=== PATIENT | male | born 1945 | race Caucasian/White ===

== ENCOUNTER → 2020-04-09 06:56 | Day surgery (SDC) | payer MEDICARE, SELFPAY ==
[2020-04-09 07:20] VITALS: BP 131/74; PULSE 76; RESP 16; TEMP 36.6; O2SAT 98
--- NOTE | 2020-04-09 12:29 | SUR.PREOP ---
0720 Pt to OPS for warm milk and molasses enema followed with soap suds enemas until clear. Pt tolerated enemas well. Small amount of stool returned. Rectal vault checked with no stool or impaction noted. Enemas completed until clear.
== END ==
PROVIDERS: PCP Family Medicine; Visit Provider Family Medicine
DX: K59.00 Constipation, unspecified (principal)
CPT/HCPCS: 45915

== ENCOUNTER 2020-04-10 15:23 | Emergency (ER) | payer MEDICARE, SELFPAY ==
--- NOTE | 2020-04-10 15:37 | XRR_ITS ---
PROCEDURE INFORMATION: Exam: XR Abdomen, 1 View Exam date and time: 04/10/2020 4:16 PM Age: 74 years old Clinical indication: Constipation TECHNIQUE: Imaging protocol: XR of the abdomen. Views: Frontal supine view of the abdomen. 1 View. COMPARISON: CR XR abdomen min 2V [id number] 04/07/2020 5:42 PM FINDINGS: Gastrointestinal tract: Normal. No bowel dilation. There is significant colonic fecal stasis involving the ascending proximal transverse descending and sigmoid colon. The examination is negative for evidence of bowel obstruction. The bowel gas pattern is otherwise unremarkable. Bones/joints: Unremarkable. Other findings: These findings have increased since prior examination. XR/XR KUB [id number] IMPRESSION: 1. No acute GI abnormality. 2. Significant colonic fecal stasis 3. Otherwise negative examination
[2020-04-10 15:51] VITALS: BP 103/66; PULSE 82; RESP 14; TEMP 36.6; O2SAT 97; BMI 21.2
[2020-04-10 16:08] VITALS: BP 139/85; PULSE 83; RESP 18; O2SAT 96
--- NOTE | 2020-04-10 16:09 | W.ED.GENADLT ---
HPI - General Adult General: Chief complaint: General Medical Stated complaint: constipation/nausea Time Seen by Provider: 04/10/20 16:04 Source: patient Mode of arrival: ambulatory Limitations: no limitations History of Present Illness: HPI narrative: 74-year-old male who has a long history of constipation. Patient states that yesterday he went to the GI lab and had an emesis. Patient did take mag citrate today but is unable to have a bowel movement. He denies any pain he states he just concerned as he has not had a bowel movement. Denies any vomiting or diarrhea. Denies any worsening improving factors. Associated symptoms: Deny chest pain, dyspnea, headache(s) or rash Review of Systems Const: Denies: fever(s), chills, body aches or change in appetite Eyes: Denies: blurry vision or eye discomfort ENMT: Denies: throat pain or dental pain Card: Denies: chest pain Resp: Denies: dyspnea GI: Reports: constipation : Denies: dysuria Musc: Denies: neck pain or back pain Skin/Breast: Denies: rash Neuro: Denies: headache(s) Psych: Denies: depression Shaheen/Lymph: Denies: easy bruising All/Imm: Denies: urticaria Physical Exam Const: COMMON NORMALS: no acute distress, patient oriented x3 and healthy appearing HENMT: COMMON NORMALS: normocephalic and atraumatic HEAD & SCALP: normocephalic and atraumatic Eye: COMMON NORMALS: Equal, round and reactive pupils present and EOMs intact bilaterally PUPIL: Yes Equal, round and reactive pupils present Neck/C-Spine: COMMON NORMALS: full ROM and supple Chest: COMMONS NORMALS: normal inspection of the chest and normal palpation of entire chest wall Resp: COMMON NORMALS: normal respiratory effort, No retractions, No use of accessory muscles and clear to auscultation bilaterally AUSCULTATION: clear to auscultation bilaterally Cardio: COMMON NORMALS: regular rate, regular rhythm and No murmurs present (Cardio) RATE: regular rate RHYTHM: regular rhythm GI: COMMON NORMALS: Normal to inspection, nondistended, normoactive bowel sounds present, Soft to palpation, non-tender and no masses PALPATION: Yes Soft to palpation Extremity: COMMON NORMALS: normal to inspection and full ROM Neuro: COMMON NORMALS: patient oriented x3, moves all extremities and no focal motor deficits Psych: COMMON NORMALS: mental status grossly normal, Normal thought process present and cooperative THOUGHT PROCESS: Normal thought process present Skin: COMMON NORMALS: no rashes or lesions noted and no wounds GENERAL SKIN EXAM: no rashes or lesions noted Course Vital Signs: Vital signs: Vital Signs Temperature 97.9 F 04/10/20 15:51 Pulse Rate 74 04/10/20 18:00 Respiratory Rate 18 04/10/20 18:00 Blood Pressure 114/73 04/10/20 18:00 Pulse Oximetry 96 04/10/20 18:00 MDM - General Adult MDM Narrative: Medical decision making narrative: Patient presents here with constipation. Patient had a very large bowel movement here after lactulose. Patient is to continue stool softeners and laxatives at home. He feels much improved and is stable for discharge. He is to follow-up primary care doctor in 3 to 5 days and return if worsening. Imaging Data^: KUB: Radiologist's impression: Reason: [place] [address] XRay Report Signed Patient: Prashant Durham Unit #: [id number] : 1945 Age/Sex: 74 / M ADM Date: 04/10/20 Loc: ER Room/Bed: Attending Dr: Ordering Provider/Ordering MD: Aspen Arcos MD Date of Service: 04/10/20 Procedure(s): XR KUB [id number] Accession Number(s): [id number] Report Number: [id number] PROCEDURE INFORMATION: Exam: XR Abdomen, 1 View Exam date and time: 04/10/2020 4:16 PM Age: 74 years old Clinical indication: Constipation TECHNIQUE: Imaging protocol: XR of the abdomen. Views: Frontal supine view of the abdomen. 1 View. COMPARISON: CR XR abdomen min 2V [id number] 04/07/2020 5:42 PM FINDINGS: Gastrointestinal tract: Normal. No bowel dilation. There is significant colonic fecal stasis involving the ascending proximal transverse descending and sigmoid colon. The examination is negative for evidence of bowel obstruction. The bowel gas pattern is otherwise unremarkable. Bones/joints: Unremarkable. Other findings: These findings have increased since prior examination. XR/XR KUB [id number] IMPRESSION: 1. No acute GI abnormality. 2. Significant colonic fecal stasis 3. Otherwise negative examination Discharge Plan Discharge Patient Disposition: Home Clinical Impression: Constipation Qualifiers: Constipation type: unspecified constipation type Qualified Code(s): K59.00 - Constipation, unspecified Condition: Stable Prescriptions: No Action felodipine 5 mg tablet extended release 24 hr 5 mg PO BID RF: 0 Vitamin B-1 250 mg Tablet 250 mg PO DAILY RF: 0 nortriptyline 10 mg capsule 10 mg PO BID RF: 0 carbidopa-levodopa 25-100 mg tablet See Rx Instructions .ROUTE .COMPLEX RF: 0 hawthorn 500 mg Capsule 500 mg PO DAILY RF: 0 Curcumin 95 % Powder See Rx Instructions .ROUTE .COMPLEX RF: 0 taurine 1,000 mg Capsule 1,000 mg PO DAILY RF: 0 Discharge Orders: Discharge Order (Routine); Ordered 04/10/20 Ordered By: Aspen Arcos Referrals: Alexander Hayes MD [Primary Care Provider] - 1-3 days Discharge Diet: Advance as tolerated Discharge Activity: Resume usual activity Patient Instructions: Constipation (ED) Coding Level of Care Code ED Airport Planner for Chg Fwd Exam Comprehensive
[2020-04-10] MEDS: lactulose oral liq 20 gm/30 mL UDC 30 GM PO (16:25)
[2020-04-10] MEDS: ondansetron 4 MG Tablet PO (16:25)
[2020-04-10 17:02] VITALS: BP 99/67; PULSE 74; RESP 18; O2SAT 97
[2020-04-10 18:00] VITALS: BP 114/73; PULSE 74; RESP 18; O2SAT 96
== END 2020-04-10 19:06 | disposition home or self-care (01) ==
PROVIDERS: Emergency Provider Emergency Medicine; PCP Family Medicine
DX: K59.00 Constipation, unspecified (principal)
CPT/HCPCS: 12345; 74018; 99281; 99283; Q0162

== ENCOUNTER 2020-04-19 13:27 | Emergency (ER) | payer MEDICARE, SELFPAY ==
[2020-04-19 13:36] VITALS: BP 138/75; PULSE 80; RESP 18; TEMP 36.4; O2SAT 98; BMI 20.7
--- NOTE | 2020-04-19 15:47 | W.ED.SKABFB ---
HPI - Skin/Abscess/Foreign Bdy General: Chief complaint: Skin/Abscess/Foreign Body Stated complaint: blisters and rash on stomach and back Time Seen by Provider: 04/19/20 15:47 History of Present Illness: HPI narrative: Pleasant 74-year-old male with Parkinson's disease presents to the emergency department with less than 24-hour onset of rash to the lower abdomen and lower back. He reports recent huang with constipation but has now improved, his son-in-law who is with him, reports recent changes to Parkinson's medication. He denies fever chills, reports rash has been painful. He denies pain upon exam. His son-in-law reports he continues to have difficulty with depression and anxiety due to Parkinson's disease. MD complaint: rash Onset (ago): hour(s) (<24) Location: chest and back Severity: moderate Quality: burning and pruritic Pain Consistency: intermittent Exacerbating factors: none Associated symptoms: Reports no associated symptoms; Deny chills, fever(s), nausea or vomiting Review of Systems General: Reports: 10 or more systems reviewed and unremarkable except in HPI and below Const: Denies: fever(s), chills or diaphoresis Eyes: Denies: blurry vision or eye redness ENMT: Denies: throat pain, dental pain or disequilibrium Card: Denies: chest pain, palpitations or irregular heart rhythm Resp: Denies: dyspnea, productive cough, non-productive cough or wheezing GI: Denies: abdominal pain, nausea or vomiting : Denies: dysuria Musc: Denies: back pain Skin/Breast: Reports: rash, pruritus, erythema, skin pain and skin tenderness Neuro: Denies: headache(s), weakness in extremities or behavioral changes Psych: Reports: anxiety (Chronic) and depression (Chronic) Shaheen/Lymph: Denies: easy bruising Physical Exam Const: COMMON NORMALS: no acute distress, patient oriented x3, healthy appearing and alert GENERAL APPEARANCE: cooperative, comfortable and well hydrated HENMT: COMMON NORMALS: normocephalic, Normal external nose present and moist oral mucous membranes HEAD & SCALP: normocephalic NOSE: Normal external nose present Eye: COMMON NORMALS: Equal, round and reactive pupils present and EOMs intact bilaterally GENERAL EYE: appearance normal, both eyes and all related structures PUPIL: Yes Equal, round and reactive pupils present Neck/C-Spine: COMMON NORMALS: full ROM and no lymphadenopathy GENERAL: Yes normal visual inspection and Yes trachea midline CERVICAL SPINE: Yes cervical ROM normal Lymph: LYMPHATIC: no lymphadenopathy noted Chest: COMMONS NORMALS: normal inspection of the chest Resp: COMMON NORMALS: normal respiratory effort and clear to auscultation bilaterally AUSCULTATION: clear to auscultation bilaterally Cardio: COMMON NORMALS: regular rhythm, S1 normal heart sound present and S2 normal heart sound present RHYTHM: regular rhythm HEART SOUNDS: S1 normal heart sound present and S2 normal heart sound present GI: COMMON NORMALS: Soft to palpation and non-tender INSPECTION: Yes normal to inspection PALPATION: Yes Soft to palpation : COMMON NORMALS: Yes no CVA tenderness BLADDER/KIDNEY EXAM: Yes no CVA tenderness Back/Pelvis: COMMON NORMALS: no CVA tenderness and thoracic and lumbar spine normal to inspection Extremity: COMMON NORMALS: normal to inspection and capillary refill normal Neuro: COMMON NORMALS: patient oriented x3 and no focal motor deficits SENSORIUM/ORIENTATION: Yes alert Psych: COMMON NORMALS: mental status grossly normal, Normal thought process present and cooperative ACTIVITY/MOTOR BEHAVIOR: Yes appropriate eye contact THOUGHT PROCESS: Normal thought process present Skin: LESIONS: lesion noted (Pustular) RASHES: rashes noted Hepatic with erythema base, linear along dermatome anterior and posterior, does not cross midline Rash location: Lower left chest wall, left middle back Rash findings consistent with: Yes herpes zoster Course ED course: 74-year-old male with Parkinson's disease presents emergency department with less than 24-hour onset of herpes zoster dermatitis, shingles, serology urinalysis completed secondary to outbreak, his first case, son-in-law, reports increased stress and depression due to news and world events. This could perhaps participate shingles outbreak. Recent Parkinson's medication changes by a neurologist this past week. Discussion of shingles and pain control/treatment discussed in depth with son-in-law and patient. Questions were answered, agrees to follow-up with primary care this week. Vital Signs: Vital signs: Vital Signs Temperature 97.5 F L 04/19/20 13:36 Pulse Rate 75 04/19/20 18:26 Respiratory Rate 18 04/19/20 18:26 Blood Pressure 174/91 04/19/20 18:26 Pulse Oximetry 99 04/19/20 18:26 MDM - Skin/Abscess/Foreign Bdy Lab Data: Labs: Lab Results 04/19/20 04/19/20 04/19/20 Range/Units 16:30 17:09 17:09 WBC 8.0 (4.0-10.0) 10^3/ uL RBC 4.71 (4.1-5.3) 10^6/u L Hgb 14.2 (11.7-16.6) g/dL Hct 43.4 (42.0-52.0) % MCV 92.1 (80-94) fL MCH 30.1 (28.0-34.0) pg MCHC 32.7 (30.0-36.0) g/dL RDW 12.2 (12.1-15.1) % Plt Count 300 (130-400) 10^3/c mm MPV 8.9 (7.4-10.4) fL Neut % (Auto) 67.9 % Lymph % (Auto) 18.8 % [place] % (Auto) 10.5 % Eos % (Auto) 1.7 % Baso % (Auto) 0.6 % Neut # (Auto) 5.45 (1.8-7.7) 10^3/u L Lymph # (Auto) 1.5 (0.8-4.8) 10^3/u L [place] # (Auto) 0.8 (0.2-0.9) 10^3/u L Eos # (Auto) 0.1 (0.0-0.8) 10^3/u L Baso # (Auto) 0.1 (0.0-0.1) 10^3/u L Nucleated RBC % (a uto) 0 % Nucleated RBCs # 0.0 /100WBC Sodium Cancelled Potassium Cancelled Chloride Cancelled Carbon Dioxide Cancelled Anion Gap Cancelled BUN Cancelled Creatinine Cancelled GFR Calculation Cancelled Glucose Cancelled Calculated Osmolal ity Cancelled Calcium Cancelled Total Bilirubin Cancelled AST Cancelled ALT Cancelled Alkaline Phosphata se Cancelled Total Protein Cancelled Albumin Cancelled Globulin Cancelled Urine Color Yellow (Yellow) Urine Appearance Clear (CLEAR) Urine pH 8 H (5-7) Ur Specific Gravit y 1.005 (1.005-1.030) Urine Protein Neg (Negative) Urine Glucose (UA) Norm (Normal) Urine Ketones Negative (Negative) Urine Blood Neg (Negative) Urine Nitrate Negative (Negative) Urine Bilirubin Neg (NEGATIVE) Prot Sulfosalicyli c Acd Negative (Negative) Urine Urobilinogen Norm (Negative) mg/dL Ur Leukocyte Dina ase Negative (Negative) 04/19/20 Range/Units 18:06 WBC (4.0-10.0) 10^3/ uL RBC (4.1-5.3) 10^6/u L Hgb (11.7-16.6) g/dL Hct (42.0-52.0) % MCV (80-94) fL MCH (28.0-34.0) pg MCHC (30.0-36.0) g/dL RDW (12.1-15.1) % Plt Count (130-400) 10^3/c mm MPV (7.4-10.4) fL Neut % (Auto) % Lymph % (Auto) % [place] % (Auto) % Eos % (Auto) % Baso % (Auto) % Neut # (Auto) (1.8-7.7) 10^3/u L Lymph # (Auto) (0.8-4.8) 10^3/u L [place] # (Auto) (0.2-0.9) 10^3/u L Eos # (Auto) (0.0-0.8) 10^3/u L Baso # (Auto) (0.0-0.1) 10^3/u L Nucleated RBC % (a uto) % Nucleated RBCs # /100WBC Sodium 131 L Potassium 3.8 Chloride 93 L Carbon Dioxide 29 Anion Gap 12.8 BUN 12 Creatinine 0.7 GFR Calculation Not Reportable Glucose 112 Calculated Osmolal ity 269 L Calcium 9.0 Total Bilirubin 0.4 AST 21 ALT 6 Alkaline Phosphata se 129 Total Protein 7.8 Albumin 4.8 Globulin 3.0 Urine Color (Yellow) Urine Appearance (CLEAR) Urine pH (5-7) Ur Specific Gravit y (1.005-1.030) Urine Protein (Negative) Urine Glucose (UA) (Normal) Urine Ketones (Negative) Urine Blood (Negative) Urine Nitrate (Negative) Urine Bilirubin (NEGATIVE) Prot Sulfosalicyli c Acd (Negative) Urine Urobilinogen (Negative) mg/dL Ur Leukocyte Dina ase (Negative) Discharge Plan Discharge Patient Disposition: Home Clinical Impression: Herpes zoster dermatitis Shingles Qualifiers: Herpes zoster complications: without complications Qualified Code(s): B02.9 - Zoster without complications Condition: Stable Prescriptions: New valacyclovir 1 gram tablet 1,000 mg PO Q8H 10 Days Qty: 30 RF: 0 Lidoderm 5 % adhesive patch,medicated 2 patch TOPICAL DAILY Qty: 30 RF: 0 hydrocodone-acetaminophen 5-325 mg tablet 1 tab PO Q6H PRN (Reason: pain) Qty: 10 RF: 0 No Action felodipine 5 mg tablet extended release 24 hr 5 mg PO BID RF: 0 Vitamin B-1 250 mg Tablet 250 mg PO DAILY RF: 0 nortriptyline 10 mg capsule 10 mg PO BID RF: 0 carbidopa-levodopa 25-100 mg tablet See Rx Instructions .ROUTE .COMPLEX RF: 0 hawthorn 500 mg Capsule 500 mg PO DAILY RF: 0 Curcumin 95 % Powder See Rx Instructions .ROUTE .COMPLEX RF: 0 taurine 1,000 mg Capsule 1,000 mg PO DAILY RF: 0 Discharge Orders: Discharge Order (Routine); Ordered 04/19/20 Ordered By: Sunni Humphrey Referrals: Alexander Hayes MD [Primary Care Provider] - Discharge Diet: Usual diet Discharge Activity: Resume usual activity Patient Instructions: Herpes Zoster (ED), Shingles Activity Restrictions/Additional Instructions: Shingles can be painful, prescription of hydrocodone was provided to you. May use Tylenol, not to exceed 2 g in a 24-hour period, may be utilized for mild pain. Follow-up with your doctor next week Take valacyclovir until all gone Return to the ED for pain that is out of control Discharge Date/Time: 04/19/20 18:29 Coding Level of Care Code ED Digital Content Manager for Renan Fwd Exam Comprehensive
[2020-04-19] MEDS: valACYclovir 1,000 mg Tablet 1000 MG PO (16:20)
[2020-04-19] MEDS: acetaminophen 325 mg Tablet 650 MG PO (16:20)
[2020-04-19 16:44] LABS: Add Urine Microscopic? NO
[2020-04-19 16:51] LABS: Specific Gravity, Urine 1.005 (1.005-1.030); Urine Appearance Clear (CLEAR); Urine Color Yellow (Yellow); pH Urine 8 (5-7)
[2020-04-19 16:52] LABS: Bilirubin Urine Neg (NEGATIVE); Blood Urine Neg (Negative); Glucose Urine UA Norm (Normal); Ketones Urine Negative (Negative); Leukocyte Esterase Urine Negative (Negative); Nitrate Urine Negative (Negative); Protein Urine Neg (Negative); Sulfosalicylic Acid Urine Negative (Negative); Urobilinogen Urine Norm (Negative)
[2020-04-19 17:21] LABS: Basophils # 0.1 10^3/uL (0.0-0.1); Basophils % 0.6 %; Eosinophils # 0.1 10^3/uL (0.0-0.8); Eosinophils % 1.7 %; Hematocrit 43.4 % (42.0-52.0); Hemoglobin 14.2 g/dL (11.7-16.6); Lymphocytes # 1.5 10^3/uL (0.8-4.8); Lymphocytes % 18.8 %; Mean Corpuscular HGB Conc 32.7 g/dL (30.0-36.0); Mean Corpuscular Hemoglobin 30.1 pg (28.0-34.0); Mean Corpuscular Volume 92.1 fL (80-94); Mean Platelet Volume 8.9 fL (7.4-10.4); Monocytes # 0.8 10^3/uL (0.2-0.9); Monocytes % 10.5 %; Neutrophils # 5.45 10^3/uL (1.8-7.7); Neutrophils % 67.9 %; Nucleated Red Blood Cells % 0 %; Platelet Count 300 10^3/cmm (130-400); Red Blood Count 4.71 10^6/uL (4.1-5.3); Red Cell Distribution Width 12.2 % (12.1-15.1)
[2020-04-19 18:26] VITALS: BP 174/91; PULSE 75; RESP 18; O2SAT 99
[2020-04-19 18:44] LABS: Alanine Aminotransferase 6 U/L (0-41); Albumin Level 4.8 g/dL (3.5-5.2); Alkaline Phosphatase 129 IU/L (40-130); Anion Gap 12.8 (5-19); Aspartate Amino Transferase 21 U/L (0-40); Blood Urea Nitrogen 12 mg/dL (8-23); Carbon Dioxide 29 mmol/L (22-29); Chloride 93 mmol/L (98-107); Glucose 112 mg/dL (65-115); Osmolality Calculated 269 mOsm/kg (285-295); Potassium 3.8 mmol/L (3.5-5.1); Sodium 131 mmol/L (136-145); Total Bilirubin 0.4 mg/dL (0.15-1.2); Total Protein 7.8 g/dL (6.6-8.7)
== END 2020-04-19 18:29 | disposition home or self-care (01) ==
PROVIDERS: Emergency Provider Nurse Practitioner Family; PCP Family Medicine
DX: B02.9 Zoster without complications (principal)
CPT/HCPCS: 12345; 36415; 80053; 81003; 85025; 99281; 99283

== ENCOUNTER 2020-05-03 08:19 | Emergency (ER) | payer MEDICARE, SELFPAY ==
[2020-05-03 08:23] VITALS: BP 157/82; PULSE 87; RESP 17; TEMP 37.2; O2SAT 97; BMI 21.5
[2020-05-03 08:31] VITALS: BP 157/82; PULSE 82; RESP 18; O2SAT 98
--- NOTE | 2020-05-03 08:32 | CTR_ITS ---
PROCEDURE INFORMATION: Exam: CT Head Without Contrast Exam date and time: 05/03/2020 8:33 AM Age: 74 years old Clinical indication: Altered mental status/memory loss; Additional info: AMS TECHNIQUE: Imaging protocol: Computed tomography of the head without contrast. Radiation optimization: All CT scans at this facility use at least one of these dose optimization techniques: automated exposure control; mA and/or kV adjustment per patient size (includes targeted exams where dose is matched to clinical indication); or iterative reconstruction. COMPARISON: MRI Head w/wo* [id number] 03/30/2016 1:35 PM RADIATION DOSE METRICS: Total DLP (mGy-cm): 894.6 FINDINGS: Brain: Hypodensity is seen in the periventricular cerebral white matter. This change is nonspecific but is most likely secondary to chronic ischemia within microvascular distributions. Deluca white matter distinction is maintained throughout the brain. No radiographic evidence of intracranial hemorrhage. Ventricles: Ventricles are enlarged on the basis of mild diffuse cerebral volume loss. Bones/joints: Unremarkable. No acute fracture. Sinuses: Visualized sinuses are unremarkable. No fluid levels. Mastoid air cells: Visualized mastoid air cells are well aerated. Soft tissues: Unremarkable. Other findings: No intra or extra-axial masses, lesions or collections. CT/CT head wo con* [id number] IMPRESSION: No radiographic evidence of acute intracranial pathology. Radiation Dose CTDIVOL = (mGy): DLP = 894.6 (mGy-cm)
--- NOTE | 2020-05-03 08:32 | XRR_ITS ---
PROCEDURE INFORMATION: Exam: XR Chest, 1 View Exam date and time: 05/03/2020 8:33 AM Age: 74 years old Clinical indication: Dyspnea; Additional info: Dyspnea/cough TECHNIQUE: Imaging protocol: XR of the chest Views: 1 view. COMPARISON: CT chest con [id number] 03/05/2019 12:29 PM FINDINGS: Lungs: Emphysema Subtle patchy airspace disease right lung base greater than left. Pleural space: Unremarkable. No pleural effusion. No pneumothorax. Heart/Mediastinum: Unremarkable. No cardiomegaly. Bones/joints: Unremarkable. XR/XR chest 1V portable [id number] IMPRESSION: Subtle patchy airspace disease right lung base greater than left.
--- NOTE | 2020-05-03 08:32 | ECG_ITS ---
[facility] Test Date: 2020-05-03 Pat Name: Prashant Durham Department: Room: Gender: Male Blockmason: : 1945 Requested By: Ismael Magdaleno Order Number: [id number] Mandi MD: Ren Kirby M.D. Measurements Intervals [place] Rate: 82 P: 62 LA: 171 QRS: 51 QRSD: 118 T: 12 QT: 389 QTc: 454 Interpretive Statements SINUS RHYTHM Nonspecific ST-T changes in the anterolateral leads PROBABLE INFERIOR MYOCARDIAL INFARCTION , OF INDETERMINATE AGE [35 ms Q WAVE IN II/aVF] No previous ECG available for comparison Electronically Signed On 05-03-2020 20:52:57 CDT by Ren Kirby M.D. [email or web address]: turn off the [email or web address]/store/NU/[id number] f
--- NOTE | 2020-05-03 08:33 | ED_ITS ---
HPI - Neuro Symptoms/Deficit General: Chief Complaint: Neuro Symptoms/Deficit Stated Complaint: POSS STROKE Time Seen by Provider: 05/03/20 08:25 History of Present Illness: HPI Narrative: 74-year-old male presents to the emergency room with his son. He has a known history of Parkinson's recently had some medication adjustment including adding Seroquel half a tab at night and this morning he was poorly responsive for a period of time. In addition to this he recently was diagnosed with shingles and is completing a course of antivirals. When I came to see the patient he is awake and alert he has no focal neurologic deficits. He answers all questions appropriately and follows command has a no score of 0 Associated symptoms: Deny chest pain, malaise, nausea or vomiting Review of Systems Const: Denies: fever(s), chills, body aches, change in appetite, fatigue or malaise ENMT: Denies: throat pain, ear or mastoid pain, nasal discharge or nasal congestion Card: Denies: chest pain, edema, dyspnea on exertion or orthopnea Resp: Denies: dyspnea, productive cough or non-productive cough GI: Denies: abdominal pain, nausea, vomiting, hematemesis, coffee ground emesis, diarrhea, constipation, bloating, hematochezia or melena : Denies: flank pain, dysuria, urinary frequency or urinary urgency Skin/Breast: Reports: rash, skin tenderness and new lesions (Vesicular) [facility] ED PFSH: Medical History (Updated 05/03/20 @ 10:49 by Ismael Ozuna DO) Parkinson's disease Varicella zoster NIH stroke score NIHSS: Level Of Consciousness - 1a: 0 Level Of Consciousness Questions - 1b: Both Correct Level Of Consciousness Commands - 1c: Both Correct Best Gaze - 2: Normal Visual Ulrich - 3: No Visual Loss Facial Palsy - 4: Normal Motor Arm Right - 5: No Drift Motor Arm Left - 5: No Drift Motor Leg Right - 6: No Drift Motor Leg Left - 6: No Drift Limb Ataxia - 7: Absent Sensory - 8: Normal Best Language - 9: No Aphasia Dysarthia - 10: Normal Extinction And Inattention - 11: 0 Score: Total Score: 0 Physical Exam Const: COMMON NORMALS: no acute distress GENERAL APPEARANCE: cooperative and comfortable ORIENTATION/CONSCIOUSNESS: Yes awake, Yes oriented to person, Yes oriented to place and Yes oriented to time HENMT: COMMON NORMALS: normocephalic, atraumatic and hearing grossly normal bilaterally HEAD & SCALP: normocephalic and atraumatic Eye: COMMON NORMALS: Equal, round and reactive pupils present, EOMs intact bilaterally, conjunctivae normal and no scleral icterus CONJUNCTIVA: Yes conjunctivae normal PUPIL: Yes Equal, round and reactive pupils present Neck/C-Spine: COMMON NORMALS: no JVD Resp: COMMON NORMALS: normal respiratory effort, No retractions, No use of accessory muscles and clear to auscultation bilaterally AUSCULTATION: clear to auscultation bilaterally Cardio: COMMON NORMALS: no JVD, regular rate, regular rhythm and No murmurs present (Cardio) RATE: regular rate RHYTHM: regular rhythm GI: COMMON NORMALS: Soft to palpation and No hepatosplenomegaly present AUSCULTATION: Yes normoactive bowel sounds PALPATION: Yes Soft to palpation, No Tenderness to palpation present (GI), No Guarding due to palpation present (GI) and Yes No hepatosplenomegaly present Extremity: COMMON NORMALS: normal to inspection, capillary refill normal, no clubbing, cyanosis or edema, no calf tenderness and no pedal edema Neuro: SENSORIUM/ORIENTATION: Yes oriented to person, Yes oriented to place and Yes oriented to time Skin: NARRATIVE SKIN EXAM: Left-sided T8 dermatomal vesicular rash consistent with varicella-zoster Course Vital Signs: Vital signs: Vital Signs Temperature 99.0 F 05/03/20 08:23 Pulse Rate 82 05/03/20 08:31 Respiratory Rate 18 05/03/20 08:31 Blood Pressure 157/82 05/03/20 08:31 Pulse Oximetry 98 05/03/20 08:31 MDM - Neuro Symptoms/Deficit MDM Narrative: Medical decision making narrative: Other than his baseline Pa haleyinson's symptoms he does not have any current focal neurologic deficits that I can find. I suspect this morning symptoms were due in part to Seroquel. We will go ahead and discharge him home follow-up with his primary care doctor return if his problems Lab Data: Labs: Lab Results 05/03/20 05/03/20 05/03/20 Range/Units 08:48 08:48 09:12 WBC 7.5 (4.0-10.0) 10^3/ uL RBC 4.46 (4.1-5.3) 10^6/u L Hgb 13.6 (11.7-16.6) g/dL Hct 40.7 L (42.0-52.0) % MCV 91.3 (80-94) fL MCH 30.5 (28.0-34.0) pg MCHC 33.4 (30.0-36.0) g/dL RDW 13.0 (12.1-15.1) % Plt Count 278 (130-400) 10^3/c mm MPV 8.9 (7.4-10.4) fL Neut % (Auto) 71.9 % Lymph % (Auto) 17.8 % Schuyler % (Auto) 8.6 % Eos % (Auto) 0.8 % Baso % (Auto) 0.5 % Neut # (Auto) 5.36 (1.8-7.7) 10^3/u L Lymph # (Auto) 1.3 (0.8-4.8) 10^3/u L Schuyler # (Auto) 0.6 (0.2-0.9) 10^3/u L Eos # (Auto) 0.1 (0.0-0.8) 10^3/u L Baso # (Auto) 0.0 (0.0-0.1) 10^3/u L Nucleated RBC % (a uto) 0 % Nucleated RBCs # 0.0 /100WBC Sodium 130 L (136-145) mmol/L Potassium 3.5 (3.5-5.1) mmol/L Chloride 93 L (98-107) mmol/L Carbon Dioxide 28 (22-29) mmol/L Anion Gap 12.5 (5-19) BUN 12 (8-23) mg/dL Creatinine 0.9 (0.7-1.2) mg/dL GFR Calculation Not Reportable Glucose 105 (65-115) mg/dL Calculated Osmolal ity 266 L (285-295) mOsm/k g Calcium 9.1 (8.5-10.5) mg/dL Magnesium 2.0 (1.7-2.3) mg/dL Total Bilirubin 0.6 (0.15-1.2) mg/dL AST 17 (0-40) U/L ALT < 5 (0-41) U/L Alkaline Phosphata se 127 (40-130) IU/L Total Protein 7.1 (6.6-8.7) g/dL Albumin 4.2 (3.5-5.2) g/dL Globulin 2.9 (1.3-4.6) g/dL Urine Color Straw (Yellow) Urine Appearance Clear (CLEAR) Urine pH 8 H (5-7) Ur Specific Gravit y 1.015 (1.005-1.030) Urine Protein Neg (Negative) Urine Glucose (UA) Norm (Normal) Urine Ketones Negative (Negative) Urine Blood Neg (Negative) Urine Nitrate Negative (Negative) Urine Bilirubin Neg (NEGATIVE) Prot Sulfosalicyli c Acd Negative (Negative) Urine Urobilinogen Norm (Negative) mg/dL Ur Leukocyte Dina ase Negative (Negative) Discharge Plan Discharge Patient Disposition: Home Clinical Impression: Drug side effects, Parkinson's disease Condition: Stable Prescriptions: No Action felodipine 5 mg tablet extended release 24 hr 5 mg PO BID RF: 0 thiamine HCl (vitamin B1) [Vitamin B-1] 250 mg Tablet 250 mg PO DAILY PRN (Reason: UNKNOWN) RF: 0 carbidopa-levodopa 25-100 mg tablet See Rx Instructions .ROUTE .COMPLEX RF: 0 hawthorn 500 mg Capsule 500 mg PO DAILY PRN (Reason: UNKNOWN) RF: 0 Curcumin 95 % Powder See Rx Instructions .ROUTE .COMPLEX RF: 0 taurine 1,000 mg Capsule 1,000 mg PO DAILY PRN (Reason: UNKNOWN) RF: 0 quetiapine 25 mg tablet 12.5 mg PO BEDTIME RF: 0 Miralax 17 gram Powder In Packet 17 g PO EVERY OTHER DAY RF: 0 valacyclovir 1 gram tablet See Rx Instructions .ROUTE .COMPLEX RF: 0 Aspir-81 81 mg Tablet,Delayed Release (Dr/Ec) See Rx Instructions .ROUTE .COMPLEX RF: 0 mirtazapine 15 mg tablet,disintegrating 15 mg PO BEDTIME RF: 0 lidocaine 5 % ointment 1 applic topical QID PRN (Reason: Pain) RF: 0 hydrocodone-acetaminophen 5-325 mg tablet 1 tab PO Q6H PRN (Reason: pain) Qty: 10 RF: 0 Discharge Orders: Discharge Order (Routine); Ordered 05/03/20 Ordered By: Ismael Ozuna Referrals: Alexander Hayes MD [Primary Care Provider] - Discharge Diet: Usual diet Discharge Activity: Increase activity as tolerated Activity Restrictions/Additional Instructions: Continue current medications. Follow-up with Dr. Hayes for long-term management of discomfort from the shingles. Discharge Date/Time: 05/03/20 10:35 Coding Level of Care Code ED Electric Razor Mechanic for Renan Perdue
[2020-05-03 09:18] LABS: Basophils % 0.5 %; Eosinophils # 0.1 10^3/uL (0.0-0.8); Eosinophils % 0.8 %; Hematocrit 40.7 % (42.0-52.0); Hemoglobin 13.6 g/dL (11.7-16.6); Lymphocytes # 1.3 10^3/uL (0.8-4.8); Lymphocytes % 17.8 %; Mean Corpuscular HGB Conc 33.4 g/dL (30.0-36.0); Mean Corpuscular Hemoglobin 30.5 pg (28.0-34.0); Mean Corpuscular Volume 91.3 fL (80-94); Mean Platelet Volume 8.9 fL (7.4-10.4); Monocytes # 0.6 10^3/uL (0.2-0.9); Monocytes % 8.6 %; Neutrophils # 5.36 10^3/uL (1.8-7.7); Neutrophils % 71.9 %; Nucleated Red Blood Cells % 0 %; Platelet Count 278 10^3/cmm (130-400); Red Blood Count 4.46 10^6/uL (4.1-5.3); White Blood Count 7.5 10^3/uL (4.0-10.0)
[2020-05-03 09:40] LABS: Alanine Aminotransferase < 5 U/L (0-41); Albumin Level 4.2 g/dL (3.5-5.2); Alkaline Phosphatase 127 IU/L (40-130); Anion Gap 12.5 (5-19); Aspartate Amino Transferase 17 U/L (0-40); Blood Urea Nitrogen 12 mg/dL (8-23); Calcium 9.1 mg/dL (8.5-10.5); Carbon Dioxide 28 mmol/L (22-29); Chloride 93 mmol/L (98-107); Globulin 2.9 g/dL (1.3-4.6); Glucose 105 mg/dL (65-115); Osmolality Calculated 266 mOsm/kg (285-295); Potassium 3.5 mmol/L (3.5-5.1); Sodium 130 mmol/L (136-145); Total Bilirubin 0.6 mg/dL (0.15-1.2); Total Protein 7.1 g/dL (6.6-8.7)
[2020-05-03 09:47] LABS: Add Urine Microscopic? NO
[2020-05-03 09:49] LABS: Urine Appearance Clear (CLEAR); Urine Color Straw (Yellow)
[2020-05-03 09:50] LABS: Bilirubin Urine Neg (NEGATIVE); Blood Urine Neg (Negative); Glucose Urine UA Norm (Normal); Ketones Urine Negative (Negative); Leukocyte Esterase Urine Negative (Negative); Nitrate Urine Negative (Negative); Protein Urine Neg (Negative); Specific Gravity, Urine 1.015 (1.005-1.030); Sulfosalicylic Acid Urine Negative (Negative); Urobilinogen Urine Norm (Negative); pH Urine 8 (5-7)
[2020-05-03 10:35] VITALS: BP 136/83; PULSE 80; RESP 20
--- NOTE | 2020-05-04 19:37 | PC.NURSE ---
x-ray over read reported that the patient has a patchy airspace disease; Dr. Vergara gave written order to call patient, and have them follow up with PCP BRIELLE. orders for Omnicef and Z-Pack to [facility] here in [place]. Talked to patients family & caregiver Mayank and Yuli Morataya.
== END 2020-05-03 10:35 | disposition home or self-care (01) ==
PROVIDERS: Emergency Provider Family Medicine; PCP Family Medicine
DX: G20 Parkinson's disease (principal); T50.905A Adverse effect of unspecified drugs, medicaments and biological substances, initial encounter; Z79.82 Long term (current) use of aspirin
CPT/HCPCS: 12345; 70450; 71045; 80053; 81003; 83735; 85025; 93005; 99283

== ENCOUNTER 2021-04-05 16:37 | Emergency (ER) | payer OTHER, MEDICARE, SELFPAY ==
[2021-04-05] VITALS (10 sets, daily range): BP systolic 137–157; BP diastolic 87–119; PULSE 79–125; RESP 22–36; TEMP 36.4–36.5; O2SAT 93–99; BMI 19.9
--- NOTE | 2021-04-05 17:09 | XRR_ITS ---
PROCEDURE INFORMATION: Exam: XR Chest Exam date and time: 04/05/2021 5:09 PM Age: 75 years old Clinical indication: Shortness of breath; Prior surgery; Surgery type: Cardiac stents; Patient HX: SOB TECHNIQUE: Imaging protocol: XR of the chest. Views: 1 view. COMPARISON: CR XR chest 1V portable [id number] 05/03/2020 8:59 AM FINDINGS: Lungs: Right lower lobe interstitial congestion increased since prior No consolidation. Pleural spaces: Bilateral lower lobe pleural effusion. No pneumothorax. Heart/Mediastinum: Unremarkable. No cardiomegaly. Bones/joints: Unremarkable. XR/XR chest 1V portable [id number] IMPRESSION: 1. Bilateral lower lobe pleural effusion 2. Right lower lobe interstitial congestion
--- NOTE | 2021-04-05 17:09 | ECG_ITS ---
[facility] Test Date: 2021-04-05 Pat Name: Prashant Durham Department: Room: Gender: Male Tobacco Conditioner: : 1945 Requested By: Ari Lora Order Number: [id number] Mandi MD: RADHA KAHN Measurements Intervals [place] Rate: 123 P: -75 MD: 151 QRS: 58 QRSD: 114 T: 30 QT: 295 QTc: 424 Interpretive Statements ECTOPIC ATRIAL TACHYCARDIA MODERATE INTRAVENTRICULAR CONDUCTION DELAY [110+ ms QRS DURATION] ST ELEVATION CONSISTENT WITH INJURY, PERICARDITIS, OR EARLY REPOLARIZATION [ST ELEVATION W/O NORMALLY INFLECTED T WAVE] NONSPECIFIC ST & T-WAVE ABNORMALITY Compared to ECG 05/03/2020 08:50:12 Intraventricular conduction delay now present Early repolarization now present T-wave abnormality now present Sinus rhythm no longer present Myocardial infarct finding no longer present ST (T wave) deviation still present Electronically Signed On 04-06-2021 23:36:26 CDT by RADHA KAHN [email or web address].[email or web address]/[id number]
--- NOTE | 2021-04-05 17:10 | ECG_ITS ---
[facility] ED Test Date: 2021-04-05 Pat Name: Prashant Durham Department: Room: Gender: Male Termination Clerk: : 1945 Requested By: Ari Lora Order Number: [id number] Mandi MD: Christiana Ochoa M.D. Measurements Intervals [place] Rate: 125 P: 254 VA: 208 QRS: 56 QRSD: 118 T: 41 QT: 289 QTc: 417 Interpretive Statements Possible Atrial flutter with rapid ventricle response MODERATE INTRAVENTRICULAR CONDUCTION DELAY [110+ ms QRS DURATION] NONSPECIFIC ST & T-WAVE ABNORMALITY ABNORMAL RHYTHM ECG Compared to ECG 05/03/2020 08:50:12 Intraventricular conduction delay now present T-wave abnormality now present Sinus rhythm no longer present ST (T wave) deviation no longer present Myocardial infarct finding no longer present Electronically Signed On 04-09-2021 12:33:53 CDT by Christiana Ochoa M.D. [email or web address] [id number]
--- NOTE | 2021-04-05 17:11 | W.ED.SOB ---
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 Presents to the emergency department with shortness of breath. Patient has a recent history of significant issues with aspiration. Patient was seen at a local clinic and had a rapid Covid test that was negative for any acute findings. [id number] and patient's sister are his primary caregivers and home care states that the patient has not had any fever. And no significant cough. Patient's dementia and Parkinson's disease are in its final stages and states the patient is a DO NOT RESUSCITATE patient. They state that he started having requiring some oxygen and had O2 sats in the mid 80s upon arrival to the clinic. Was directed to come to the emergency department. We will do medical evaluation treat as needed MD elicited complaint: shortness of breath Pertinent past history: aspiration Onset (ago): day(s) Timing: constant Severity: moderate Exacerbating factors: nothing Relieving factors: nothing Known history of: aspiration pneumonia Associated symptoms: Reports no associated symptoms; Deny abdominal pain, chest pain, extremity pain, fever(s), lightheadedness, nausea, palpitations or vomiting Treatment prior to arrival: oxygen Review of Systems General: Reports: 10 or more systems reviewed and unremarkable except in HPI and below Const: Denies: fever(s), chills, body aches or fatigue Eyes: Denies: change in vision or blurry vision ENMT: Denies: throat pain, hoarseness or mouth pain Card: Denies: chest pain, palpitations, irregular heart rhythm, edema, swelling of feet/ankles or lightheadedness Resp: Reports: dyspnea; Denies: productive cough, non-productive cough, wheezing or pain on inspiration GI: Denies: abdominal pain, nausea or vomiting : Denies: flank pain, dysuria, urinary frequency, urinary urgency or urinary hesitancy Musc: Denies: neck pain, back pain, extremity pain, extremity swelling, joint pain, joint swelling, joint redness, joint warmth or limited range of motion Skin/Breast: Denies: rash, pruritus, erythema or skin tenderness Neuro: Denies: headache(s), numbness in extremities or weakness in extremities Psych: Denies: anxiety or depression PFSH ED PFSH: Medical History Parkinson's disease Varicella zoster Physical Exam Const: COMMON NORMALS: no acute distress, average body habitus, patient oriented x3, no limitations, healthy appearing, alert and well nourished HENMT: COMMON NORMALS: normocephalic, atraumatic, hearing grossly normal bilaterally, external ears normal, EAC's normal, TM's normal bilaterally, Normal external nose present, Normal nasal mucous membranes and turbinates present, moist oral mucous membranes, oropharynx normal, dentition normal and gingiva normal HEAD & SCALP: normocephalic and atraumatic NOSE: Normal external nose present and Normal nasal mucous membranes and turbinates present EXTERNAL EAR: Yes external ears normal EXTERNAL AUDITORY CANAL: EAC's normal TYMPANIC MEMBRANE: TM's normal bilaterally Neck/C-Spine: COMMON NORMALS: full ROM, no lymphadenopathy, supple, no meningeal signs, no JVD, Thyroid normal and No carotid bruits THYROID: Thyroid normal Chest: COMMONS NORMALS: normal inspection of the chest, normal palpation of entire chest wall, normal inspection of the breasts and normal palpation of the breasts Breast/axilla inspection: Yes normal inspection of the breasts BREAST/AXILLA PALPATION: Yes normal palpation of the breasts Resp: COMMON NORMALS: No retractions, No use of accessory muscles, clear to auscultation bilaterally and percussion normal EFFORT & INSPECTION: Yes tachypneic AUSCULTATION: clear to auscultation bilaterally PERCUSSION: percussion normal Cardio: COMMON NORMALS: no JVD, regular rate, regular rhythm, S1 normal heart sound present, S2 normal heart sound present, No gallops present (Cardio), No clicks present (Cardio), No murmurs present (Cardio), No rub (Cardio) and Peripheral pulses 2+ throughout RATE: regular rate RHYTHM: regular rhythm HEART SOUNDS: S1 normal heart sound present and S2 normal heart sound present PERIPHERAL PULSES: Peripheral pulses 2+ throughout GI: COMMON NORMALS: Normal to inspection, nondistended, normoactive bowel sounds present, Soft to palpation, non-tender, No hepatosplenomegaly present, no masses and no bruits PALPATION: Yes Soft to palpation and Yes No hepatosplenomegaly present : COMMON NORMALS: Yes no CVA tenderness BLADDER/KIDNEY EXAM: Yes no CVA tenderness Back/Pelvis: COMMON NORMALS: no CVA tenderness, thoracic and lumbar spine normal to inspection, no thoracic nor lumbar tenderness, thoraco-lumbar ROM normal and straight leg raise negative bilaterally Extremity: COMMON NORMALS: normal to inspection, full ROM, capillary refill normal, no joint enlargement, no clubbing, cyanosis or edema, no calf tenderness and no pedal edema Neuro: COMMON NORMALS: patient oriented x3 SENSORIUM/ORIENTATION: Yes alert MENINGEAL SIGNS: Yes no meningeal signs Course Reevaluation(s): Reevaluation #1: Disc discussed at length with patient and family. They agreed admit to the hospital for further evaluation treatment for him and with antibiotics. Time: 19:07 Consultations: Consultation #1: I did discuss at length with Dr. Falcon hospitalist. We did discuss patient's risk of aspiration and development of aspiration pneumonia. Been reluctant to have PEG tube placement in the past and most likely will need halfway placement due to advancing Parkinson's and dementia. 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 Presents to the emergency department with shortness of breath. Patient has a recent history of significant issues with aspiration. Patient was seen at a local clinic and had a rapid Covid test that was negative for any acute findings. [id number] and patient's sister are his primary caregivers and home care states that the patient has not had any fever. And no significant cough. Patient's dementia and Parkinson's disease are in its final stages and states the patient is a DO NOT RESUSCITATE patient. They state that he started having requiring some oxygen and had O2 sats in the mid 80s upon arrival to the clinic. Was directed to come to the emergency department. We will do medical evaluation treat as needed Disc discussed at length with patient and family. They agreed admit to the hospital for further evaluation treatment for him and with antibiotics. I did discuss at length with Dr. Falcon hospitalist. We did discuss patient's risk of aspiration and development of aspiration pneumonia. Been reluctant to have PEG tube placement in the past and most likely will need halfway placement due to advancing Parkinson's and dementia. She will see patient write additional orders Lab Data: Labs: Lab Results 04/05/21 04/05/21 04/05/21 Range/Units 17:35 17:35 17:35 WBC 11.1 H (4.0-10.0) 10^3/ uL RBC 4.68 (4.1-5.3) 10^6/u L Hgb 14.5 (11.7-16.6) g/dL Hct 43.8 (42.0-52.0) % MCV 93.6 (80-94) fL MCH 31.0 (28.0-34.0) pg MCHC 33.1 (30.0-36.0) g/dL RDW 13.5 (12.1-15.1) % Plt Count 265 (130-400) 10^3/c mm MPV 9.5 (7.4-10.4) fL Neut % (Auto) 83.9 % Lymph % (Auto) 7.4 % Bennett % (Auto) 7.7 % Eos % (Auto) 0.1 % Baso % (Auto) 0.4 % Neut # (Auto) 9.33 H (1.8-7.7) 10^3/u L Lymph # (Auto) 0.8 (0.8-4.8) 10^3/u L Bennett # (Auto) 0.9 (0.2-0.9) 10^3/u L Eos # (Auto) 0.0 (0.0-0.8) 10^3/u L Baso # (Auto) 0.1 (0.0-0.1) 10^3/u L Nucleated RBC % (a uto) 0 % Nucleated RBCs # 0.0 /100WBC PT Cancelled INR Cancelled D-Dimer Cancelled Specimen Type Sample Site ABG pH (7.35-7.45) ABG pCO2 (35-45) mmHg ABG pO2 (80.0-100.0) mmH g ABG HCO3 (22-26) mmol/L ABG Base Excess (-2.0-2.0) mmol/ L Brandon Test Hematocrit (42-52) % Hgb O2 Saturation (95-100) % Carboxyhemoglobin (0.4-20.1) %THgb Methemoglobin (0.4-1.5) % Total Hemoglobin (14-18) g/dL O2 Delivery Device O2 Liters/Min % Product Inspection Coordinator ID Sodium 127 L (136-145) mmol/L Potassium 3.9 (3.5-5.1) mmol/L Chloride 92 L (98-107) mmol/L Carbon Dioxide 21 L (22-29) mmol/L Anion Gap 17.9 (5-19) BUN 13 (8-23) mg/dL Creatinine 0.8 (0.7-1.2) mg/dL GFR Calculation Not Reportable Glucose 140 H (65-115) mg/dL Calculated Osmolal ity 266 L (285-295) mOsm/k g Calcium 8.6 (8.5-10.5) mg/dL Total Bilirubin 0.7 (0.15-1.2) mg/dL AST 28 (0-40) U/L ALT < 5 (0-41) U/L Alkaline Phosphata se 106 (40-130) IU/L Troponin T Baselin e (0-15) ng/L NT-Pro-B Natriuret Pep 3295 H (0-450) pg/mL Total Protein 6.8 (6.6-8.7) g/dL Albumin 4.3 (3.5-5.2) g/dL Globulin 2.5 (1.3-4.6) g/dL Influenza Type A A g (Negative) Influenza Type B A g (Negative) 04/05/21 04/05/21 04/05/21 Range/Units 17:35 17:35 17:38 WBC (4.0-10.0) 10^3/ uL RBC (4.1-5.3) 10^6/u L Hgb (11.7-16.6) g/dL Hct (42.0-52.0) % MCV (80-94) fL MCH (28.0-34.0) pg MCHC (30.0-36.0) g/dL RDW (12.1-15.1) % Plt Count (130-400) 10^3/c mm MPV (7.4-10.4) fL Neut % (Auto) % Lymph % (Auto) % Bennett % (Auto) % Eos % (Auto) % Baso % (Auto) % Neut # (Auto) (1.8-7.7) 10^3/u L Lymph # (Auto) (0.8-4.8) 10^3/u L Bennett # (Auto) (0.2-0.9) 10^3/u L Eos # (Auto) (0.0-0.8) 10^3/u L Baso # (Auto) (0.0-0.1) 10^3/u L Nucleated RBC % (a uto) % Nucleated RBCs # /100WBC PT INR D-Dimer Specimen Type Arterial Sample Site Radial, left ABG pH 7.46 H (7.35-7.45) ABG pCO2 34.1 L (35-45) mmHg ABG pO2 58.0 L (80.0-100.0) mmH g ABG HCO3 24.2 (22-26) mmol/L ABG Base Excess 0.9 (-2.0-2.0) mmol/ L Brandon Test Pos Hematocrit 45.0 (42-52) % Hgb O2 Saturation 89.6 L (95-100) % Carboxyhemoglobin 1.0 (0.4-20.1) %THgb Methemoglobin 0.7 (0.4-1.5) % Total Hemoglobin 14.7 (14-18) g/dL O2 Delivery Device Nc O2 Liters/Min 2.5 % Product Inspection Coordinator ID [id number] Sodium (136-145) mmol/L Potassium (3.5-5.1) mmol/L Chloride (98-107) mmol/L Carbon Dioxide (22-29) mmol/L Anion Gap (5-19) BUN (8-23) mg/dL Creatinine (0.7-1.2) mg/dL GFR Calculation Glucose (65-115) mg/dL Calculated Osmolal ity (285-295) mOsm/k g Calcium (8.5-10.5) mg/dL Total Bilirubin (0.15-1.2) mg/dL AST (0-40) U/L ALT (0-41) U/L Alkaline Phosphata se (40-130) IU/L Troponin T Baselin e 20 H (0-15) ng/L NT-Pro-B Natriuret Pep (0-450) pg/mL Total Protein (6.6-8.7) g/dL Albumin (3.5-5.2) g/dL Globulin (1.3-4.6) g/dL Influenza Type A A g Negative (Negative) Influenza Type B A g Negative (Negative) 04/05/21 Range/Units 18:16 WBC (4.0-10.0) 10^3/ uL RBC (4.1-5.3) 10^6/u L Hgb (11.7-16.6) g/dL Hct (42.0-52.0) % MCV (80-94) fL MCH (28.0-34.0) pg MCHC (30.0-36.0) g/dL RDW (12.1-15.1) % Plt Count (130-400) 10^3/c mm MPV (7.4-10.4) fL Neut % (Auto) % Lymph % (Auto) % Bennett % (Auto) % Eos % (Auto) % Baso % (Auto) % Neut # (Auto) (1.8-7.7) 10^3/u L Lymph # (Auto) (0.8-4.8) 10^3/u L Bennett # (Auto) (0.2-0.9) 10^3/u L Eos # (Auto) (0.0-0.8) 10^3/u L Baso # (Auto) (0.0-0.1) 10^3/u L Nucleated RBC % (a uto) % Nucleated RBCs # /100WBC PT 13.80 INR 1.03 D-Dimer 0.99 H Specimen Type Sample Site ABG pH (7.35-7.45) ABG pCO2 (35-45) mmHg ABG pO2 (80.0-100.0) mmH g ABG HCO3 (22-26) mmol/L ABG Base Excess (-2.0-2.0) mmol/ L Brandon Test Hematocrit (42-52) % Hgb O2 Saturation (95-100) % Carboxyhemoglobin (0.4-20.1) %THgb Methemoglobin (0.4-1.5) % Total Hemoglobin (14-18) g/dL O2 Delivery Device O2 Liters/Min % Product Inspection Coordinator ID Sodium (136-145) mmol/L Potassium (3.5-5.1) mmol/L Chloride (98-107) mmol/L Carbon Dioxide (22-29) mmol/L Anion Gap (5-19) BUN (8-23) mg/dL Creatinine (0.7-1.2) mg/dL GFR Calculation Glucose (65-115) mg/dL Calculated Osmolal ity (285-295) mOsm/k g Calcium (8.5-10.5) mg/dL Total Bilirubin (0.15-1.2) mg/dL AST (0-40) U/L ALT (0-41) U/L Alkaline Phosphata se (40-130) IU/L Troponin T Baselin e (0-15) ng/L NT-Pro-B Natriuret Pep (0-450) pg/mL Total Protein (6.6-8.7) g/dL Albumin (3.5-5.2) g/dL Globulin (1.3-4.6) g/dL Influenza Type A A g (Negative) Influenza Type B A g (Negative) EKG Data^: EKG 1: Attestation: I personally reviewed and interpreted this EKG as follows: EKG Interpretation Date: 04/05/21 EKG interpretation time: 17:41 Prior EKG tracings: not available for review Interpretation: Atrial tachycardic interventricular conduction delay nonspecific ST changes. Heart rate 123 Discharge Plan Discharge Patient Disposition: Admitted As Inpatient Clinical Impression: Aspiration pneumonia, Hyponatremia, Parkinson's disease, Lewy body dementia Condition: Stable Coding Level of Care Code ED Management Internship for Chg Fwd Exam Comprehensive
--- NOTE | 2021-04-05 17:24 | PC.PHAR ---
PTS FAMILY MEMBER VERIFIED THE PTS MEDICATIONS
[2021-04-05] MEDS: ipratropium-albuterol 3 mL Neb INHALATION (17:34)
[2021-04-05 17:48] LABS: ABG PCO2 34.1 mmHg (35-45); ABG PH Result 7.46 (7.35-7.45); Base Excess ABG 0.9 mmol/L (-2.0-2.0); Blood Gas Allen Test Pos; Blood Gas LPM 2.5 %; Blood Gas Sample Site Radial, left; Blood Gas Sample Type Arterial; HCO3 ABG 24.2 mmol/L (22-26); HGB O2 Sat 89.6 % (95-100); Methemoglobin 0.7 % (0.4-1.5); Oxygen Device NC; Total Hemoglobin 14.7 g/dL (14-18)
[2021-04-05 17:50] LABS: Basophils # 0.1 10^3/uL (0.0-0.1); Basophils % 0.4 %; Eosinophils % 0.1 %; Hematocrit 43.8 % (42.0-52.0); Hemoglobin 14.5 g/dL (11.7-16.6); Lymphocytes # 0.8 10^3/uL (0.8-4.8); Lymphocytes % 7.4 %; Mean Corpuscular HGB Conc 33.1 g/dL (30.0-36.0); Mean Corpuscular Volume 93.6 fL (80-94); Mean Platelet Volume 9.5 fL (7.4-10.4); Monocytes # 0.9 10^3/uL (0.2-0.9); Monocytes % 7.7 %; Neutrophils # 9.33 10^3/uL (1.8-7.7); Neutrophils % 83.9 %; Nucleated Red Blood Cells % 0 %; Platelet Count 265 10^3/cmm (130-400); Red Blood Count 4.68 10^6/uL (4.1-5.3); Red Cell Distribution Width 13.5 % (12.1-15.1); White Blood Count 11.1 10^3/uL (4.0-10.0)
[2021-04-05] MEDS: sodium chloride 0.9% 500 ML 999 ML IV (18:10)
[2021-04-05 18:13] LABS: Troponin(5th) Baseline 20 ng/L (0-15)
[2021-04-05 18:22] LABS: Alanine Aminotransferase < 5 U/L (0-41); Albumin Level 4.3 g/dL (3.5-5.2); Alkaline Phosphatase 106 IU/L (40-130); Anion Gap 17.9 (5-19); Aspartate Amino Transferase 28 U/L (0-40); Blood Urea Nitrogen 13 mg/dL (8-23); Calcium 8.6 mg/dL (8.5-10.5); Carbon Dioxide 21 mmol/L (22-29); Chloride 92 mmol/L (98-107); Globulin 2.5 g/dL (1.3-4.6); Glucose 140 mg/dL (65-115); NT Pro B Type Natriuretic Pept 3295 pg/mL (0-450); Osmolality Calculated 266 mOsm/kg (285-295); Potassium 3.9 mmol/L (3.5-5.1); Sodium 127 mmol/L (136-145); Total Bilirubin 0.7 mg/dL (0.15-1.2); Total Protein 6.8 g/dL (6.6-8.7)
[2021-04-05] MEDS: clindamycin 900 MG/50 ML PREMIX 100 MG IV (18:31)
[2021-04-05 18:36] LABS: INR 1.03 (0.8-1.2)
[2021-04-05 18:39] LABS: D Dimer 0.99 ug/mIFEU (0-0.59)
[2021-04-05 18:41] LABS: Influenza A by IFA Negative (Negative); Influenza B by IFA Negative (Negative)
[2021-04-05] MEDS: metoprolol tartrate 1 mg/1 mL SDV 5 mL 5 MG IV (19:44)
[2021-04-05 20:25] LABS: Troponin 5 2HR 18.15 ng/L (0-15)
[2021-04-05 20:36] LABS: Troponin 5 2HR Delta -1.85 ABS# (0-10)
--- NOTE | 2021-04-05 20:51 | PM.HP ---
Providers/Chief Complaint Admitting Physician: Juliet Falcon MD Primary Care Provider: Alexander Hayes MD Chief Complaint: sob History of Present Illness Prashant Durham is a 75 year old male with PMH PArkinson's, rajni body dementia, aspiration pneumonia ramon by family today due to shortness of breath. Medications/Allergies Home Medications Medication Instructions Recorded Confirmed Last Taken Type carbidopa-levodopa 2 tab PO .FIVE TIMES A DAY 04/10/20 04/05/21 04/05/21 15:00 History felodipine 5 mg PO BID 04/10/20 04/05/21 05/03/20 History hawthorn 500 mg PO BEDTIME 04/10/20 04/05/21 04/10/20 History taurine 1,000 mg PO DAILY PRN 04/10/20 04/05/21 04/10/20 History thiamine HCl (vitamin B1) [Vitamin 250 mg PO BEDTIME 04/10/20 04/05/21 04/10/20 History B-1] mirtazapine 15 mg PO BEDTIME 05/03/20 04/05/21 05/02/20 History polyethylene glycol 3350 [Miralax] 17 g PO EVERY OTHER DAY 05/03/20 04/05/21 05/02/20 History meloxicam 7.5 mg PO DAILY PRN 04/05/21 04/05/21 Unknown History turmeric 800 mg PO BEDTIME 04/05/21 04/05/21 Unknown History Allergies Allergy/AdvReac Type Severity Reaction Status Date / Time No Known Allergies Allergy Verified 04/05/21 17:24 PFSH Acute PFSH: Medical History Parkinson's disease Varicella zoster Vitals/I&O/Wt Last Vital Signs Temp 97.7 F 04/05/21 17:01 Pulse 110 H 04/05/21 20:00 Resp 28 H 04/05/21 20:00 BP 144/110 04/05/21 20:00 Pulse Ox 97 04/05/21 20:00 Weight last 48 hrs Weight 61.235 kg Data : 04/05/21 17:35 04/05/21 17:35 Micro: Microbiology 04/05/21 18:16 Blood Culture - Preliminary Blood SPECIMEN COLLECTED 04/05/21 17:35 Blood Culture - Preliminary Blood SPECIMEN COLLECTED Coding Level of Care Code Acute Military Logistics Specialist for Renan Perdue
[2021-04-05] MEDS: FUROsemide 10 mg/mL SDV 2mL 20 MG IVP (21:39)
--- NOTE | 2021-04-05 23:10 | ECG_ITS ---
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 Measurements Intervals [place] Rate: 112 P: AL: QRS: 72 QRSD: 114 T: 226 QT: 322 QTc: 440 Interpretive Statements ATRIAL FLUTTER WITH RAPID VENTRICULAR RESPONSE MODERATE INTRAVENTRICULAR CONDUCTION DELAY [110+ ms QRS DURATION] ST DEVIATION AND MODERATE T-WAVE ABNORMALITY, CONSIDER LATERAL ISCHEMIA [-0.1+ mV T WAVE IN I/aVL/V5/V6] Compared to ECG 04/05/2021 19:11:47 Possible ischemia now present T-wave abnormality still present Electronically Signed On 04-16-2021 10:11:22 CDT by Christiana Ochoa M.D. [id number]
[2021-04-05 23:55] LABS: Troponin 5 6HR 20.65 ng/L (0-15); Troponin 5 6HR Delta 0.65 ng/L (0-12)
[2021-04-06] VITALS: BP 145/103; PULSE 113; RESP 25; O2SAT 99
[2021-04-06 02:38] LABS: SARS Covid-2 Antigen Negative (Negative)
[2021-04-06 02:56] VITALS: BP 148/112; PULSE 113; RESP 23; O2SAT 98
[2021-04-06 03:29] VITALS: BP 139/104; PULSE 112; RESP 31; O2SAT 97
[2021-04-06] MEDS: piperacillin-tazobactam 3.375 GM in sodium chloride 0.9% (plus) 100 ML IV (03:29)
[2021-04-06 04:33] VITALS: O2SAT 92; O2SAT 94
--- NOTE | 2021-04-06 06:32 | PM.MISC ---
Miscellaneous Note Note: Hospitalist service was consulted and patient was accepted as inpatient, however subsequently due to non availability of beds, attempts were made to transfer to outside facility. Family elected to take patient home instead. Patient was discharged from ER
[2021-04-06 15:20] LABS: Coronavirus Test Green County Not Detected
== END 2021-04-06 05:09 | disposition home or self-care (01) ==
PROVIDERS: Emergency Provider Emergency Medicine; PCP Family Medicine
DX: J69.0 Pneumonitis due to inhalation of food and vomit (principal); E87.1 Hypo-osmolality and hyponatremia; G20 Parkinson's disease; F02.80 Dementia in other diseases classified elsewhere, unspecified severity, without behavioral disturbance, psychotic disturbance, mood disturbance, and anxiety; Z20.822 Contact with and (suspected) exposure to COVID-19
CPT/HCPCS: 36415; 36600; 71045; 80053; 82805; 83880; 84484; 85025; 85378; 85610; 87040; 87426; 87635; 87804; 93005; 94640; 96365; 96366; 96367; 96375; 99284; J1940; J2543; J3490; J7040

== ENCOUNTER 2021-04-06 11:35 | Inpatient (IN) | payer OTHER, MEDICARE, SELFPAY ==
[2021-04-06] VITALS (7 sets, daily range): BP systolic 96–159; BP diastolic 43–117; PULSE 110–132; RESP 22–26; TEMP 36.6; O2SAT 91–95; BMI 19.9
--- NOTE | 2021-04-06 14:12 | XRR_ITS ---
PROCEDURE INFORMATION: Exam: XR Chest Exam date and time: 04/06/2021 2:12 PM Age: 75 years old Clinical indication: Shortness of breath; Additional info: SOB TECHNIQUE: Imaging protocol: XR of the chest. Views: 1 view. COMPARISON: CR XR chest 1V portable [id number] 04/05/2021 5:24 PM FINDINGS: Lungs: Parenchymal densities seen in the right lower lobe consistent with pneumonia Pleural spaces: Left lower lobe pleural effusion. There is a loculated right lower lobe effusion. N a a o pneumothorax. Heart/Mediastinum: Unremarkable. No cardiomegaly. Bones/joints: Unremarkable. XR/XR chest 1V portable [id number] IMPRESSION: 1. Low right lower lobe pneumonia 2. Bilateral lower lobe pleural effusion
--- NOTE | 2021-04-06 14:42 | ED_ITS ---
HPI - SOB/Dyspnea General: Chief Complaint: Shortness of Breath/Dyspnea Stated Complaint: Low 02, SOB, Nausea Time Seen by Provider: 04/06/21 14:32 History of Present Illness: HPI Narrative: 70-year-old male was seen last night in the emergency room with complaints of shortness of breath. He has had a productive cough. He has a history of Parkinson's and dysphagia. He has been aspirating food and water does not have lay down and sleep he also has severe tremor from his Parkinson's which further complicates it. He was hypoxic last night plan was to admit him there were no beds available to render transfer him ultimately to [place] and the family declined transfer. They return today because he seems to be getting worse he still productive cough. Patient has a power of patent prosecution attorney but they are letting him make his own decisions he indicates he does not want a PEG tube which is complicated management of his dysphagia and recurring aspiration pneumonias. MD elicited complaint: shortness of breath Pertinent past history: pneumonia Onset (ago): hour(s) Context: recent illness and choking/aspiration Timing: constant Severity: moderate Exacerbating factors: lying flat, exertion and coughing Relieving factors: oxygen and rest Known history of: recurrent pneumonia and aspiration pneumonia Associated symptoms: Reports cough and lightheadedness; Deny abdominal pain, chest congestion, chest pain, diaphoresis, dizziness, extremity pain, fever(s), hemoptysis, myalgias, nausea, orthopnea, palpitations, paresthesias, polydipsia, polyuria, rash, sense of impending doom, syncope or vomiting Treatment prior to arrival: oxygen Review of Systems Const: Denies: fever(s) or diaphoresis ENMT: Denies: throat pain, ear or mastoid pain, nasal discharge or nasal congestion Card: Reports: lightheadedness; Denies: chest pain, palpitations, syncope or orthopnea Resp: Denies: hemoptysis or chest congestion GI: Denies: abdominal pain, nausea or vomiting : Denies: flank pain, dysuria, urinary frequency or urinary urgency Musc: Denies: extremity pain Skin/Breast: Denies: rash or pruritus Neuro: Denies: dizziness Endo: Denies: polyuria or polydipsia PFS ED PFSH: Medical History Parkinson's disease Varicella zoster Physical Exam Const: COMMON NORMALS: no acute distress GENERAL APPEARANCE: cooperative and comfortable HENMT: COMMON NORMALS: normocephalic, atraumatic and hearing grossly normal bilaterally HEAD & SCALP: normocephalic and atraumatic Neck/C-Spine: COMMON NORMALS: no JVD Resp: COMMON NORMALS: normal respiratory effort, No retractions, No use of accessory muscles and clear to auscultation bilaterally AUSCULTATION: clear to auscultation bilaterally Cardio: COMMON NORMALS: no JVD, regular rate, regular rhythm and No murmurs present (Cardio) RATE: regular rate RHYTHM: regular rhythm GI: COMMON NORMALS: Soft to palpation and No hepatosplenomegaly present AUSCULTATION: Yes normoactive bowel sounds PALPATION: Yes Soft to palpation, No Tenderness to palpation present (GI), No Guarding due to palpation present (GI) and Yes No hepatosplenomegaly present Extremity: COMMON NORMALS: normal to inspection, capillary refill normal, no clubbing, cyanosis or edema, no calf tenderness and no pedal edema Skin: COMMON NORMALS: no rashes or lesions noted GENERAL SKIN EXAM: no rashes or lesions noted Course Vital Signs: Vital signs: Vital Signs Temperature 97.8 F 04/06/21 12:27 Pulse Rate 132 H 04/07/21 08:04 Respiratory Rate 18 04/07/21 08:04 Blood Pressure 138/102 04/07/21 08:04 Pulse Oximetry 96 04/07/21 08:04 MDM - SOB/Dyspnea MDM Narrative: Medical decision making narrative: I seen the patient when he initially came in we are making arrangements to get him admitted [facility] difficulty contacting [facility] overnight he had a prolonged ER stay will trying to make contact with them. Ultimately this morning were able to get in contact with [facility] they did not have any available beds nearby and approved for the patient to be hospitalized here. Discussed Dr. Badillo orders written. Lab Data: Labs: Lab Results 04/06/21 04/06/21 04/06/21 Range/Units 15:15 15:24 15:24 WBC 12.2 H (4.0-10.0) 10^3/ uL RBC 4.50 (4.1-5.3) 10^6/u L Hgb 14.0 (11.7-16.6) g/dL Hct 41.1 L (42.0-52.0) % MCV 91.3 (80-94) fL MCH 31.1 (28.0-34.0) pg MCHC 34.1 (30.0-36.0) g/dL RDW 13.3 (12.1-15.1) % Plt Count 260 (130-400) 10^3/c mm MPV 9.6 (7.4-10.4) fL Neut % (Auto) 73.2 % Lymph % (Auto) 16.5 % Brewster % (Auto) 9.2 % Eos % (Auto) 0.2 % Baso % (Auto) 0.5 % Neut # (Auto) 8.97 H (1.8-7.7) 10^3/u L Lymph # (Auto) 2.0 (0.8-4.8) 10^3/u L Brewster # (Auto) 1.1 H (0.2-0.9) 10^3/u L Eos # (Auto) 0.0 (0.0-0.8) 10^3/u L Baso # (Auto) 0.1 (0.0-0.1) 10^3/u L Nucleated RBC % (a uto) 0 % Nucleated RBCs # 0.0 /100WBC Sodium 130 L (136-145) mmol/L Potassium 3.8 (3.5-5.1) mmol/L Chloride 94 L (98-107) mmol/L Carbon Dioxide 22 (22-29) mmol/L Anion Gap 17.8 (5-19) BUN 14 (8-23) mg/dL Creatinine 0.8 (0.7-1.2) mg/dL GFR Calculation Not Reportable Glucose 90 (65-115) mg/dL Calculated Osmolal ity 270 L (285-295) mOsm/k g Lactic Acid (0.5-2.2) mmol/L Calcium 8.9 (8.5-10.5) mg/dL Total Bilirubin 1.1 (0.15-1.2) mg/dL AST 33 (0-40) U/L ALT < 5 (0-41) U/L Alkaline Phosphata se 91 (40-130) IU/L Total Protein 6.5 L (6.6-8.7) g/dL Albumin 4.3 (3.5-5.2) g/dL Globulin 2.2 (1.3-4.6) g/dL Urine Color Yellow (Yellow) Urine Appearance Clear (CLEAR) Urine pH 6.5 (5-7) Ur Specific Gravit y 1.015 (1.005-1.030) Urine Protein Neg (Negative) Urine Glucose (UA) Norm (Normal) Urine Ketones 1+ H (Negative) Urine Blood Neg (Negative) Urine Nitrate Negative (Negative) Urine Bilirubin Neg (Negative) Urine Urobilinogen Neg (Negative) mg/dL Ur Leukocyte Dina ase Negative (Negative) 04/06/21 04/07/21 Range/Units 16:09 03:05 WBC (4.0-10.0) 10^3/ uL RBC (4.1-5.3) 10^6/u L Hgb (11.7-16.6) g/dL Hct (42.0-52.0) % MCV (80-94) fL MCH (28.0-34.0) pg MCHC (30.0-36.0) g/dL RDW (12.1-15.1) % Plt Count (130-400) 10^3/c mm MPV (7.4-10.4) fL Neut % (Auto) % Lymph % (Auto) % Brewster % (Auto) % Eos % (Auto) % Baso % (Auto) % Neut # (Auto) (1.8-7.7) 10^3/u L Lymph # (Auto) (0.8-4.8) 10^3/u L Brewster # (Auto) (0.2-0.9) 10^3/u L Eos # (Auto) (0.0-0.8) 10^3/u L Baso # (Auto) (0.0-0.1) 10^3/u L Nucleated RBC % (a uto) % Nucleated RBCs # /100WBC Sodium 129 L (136-145) mmol/L Potassium 3.4 L (3.5-5.1) mmol/L Chloride 93 L (98-107) mmol/L Carbon Dioxide 22 (22-29) mmol/L Anion Gap 17.4 (5-19) BUN 13 (8-23) mg/dL Creatinine 0.7 (0.7-1.2) mg/dL GFR Calculation Not Reportable Glucose 91 (65-115) mg/dL Calculated Osmolal ity 268 L (285-295) mOsm/k g Lactic Acid 1.0 (0.5-2.2) mmol/L Calcium 8.3 L (8.5-10.5) mg/dL Total Bilirubin (0.15-1.2) mg/dL AST (0-40) U/L ALT (0-41) U/L Alkaline Phosphata se (40-130) IU/L Total Protein (6.6-8.7) g/dL Albumin (3.5-5.2) g/dL Globulin (1.3-4.6) g/dL Urine Color (Yellow) Urine Appearance (CLEAR) Urine pH (5-7) Ur Specific Gravit y (1.005-1.030) Urine Protein (Negative) Urine Glucose (UA) (Normal) Urine Ketones (Negative) Urine Blood (Negative) Urine Nitrate (Negative) Urine Bilirubin (Negative) Urine Urobilinogen (Negative) mg/dL Ur Leukocyte Dina ase (Negative) Discharge Plan Discharge Patient Disposition: Admitted As Inpatient Clinical Impression: Parkinson's disease, Lewy body dementia, Aspiration pneumonia, Hyponatremia Condition: Stable Coding Level of Care Code ED Multi Line Claims Adjuster for Renan Fwd Exam Comprehensive
[2021-04-06 15:37] LABS: Add Urine Microscopic? NO; Charge for UA Resulting for Rev
[2021-04-06] MEDS: ampicillin-sulbactam 3 GM in sodium chloride 0.9% (plus) 50 ML IV (15:55)
[2021-04-06 15:58] LABS: Basophils # 0.1 10^3/uL (0.0-0.1); Basophils % 0.5 %; Eosinophils % 0.2 %; Hematocrit 41.1 % (42.0-52.0); Lymphocytes % 16.5 %; Mean Corpuscular HGB Conc 34.1 g/dL (30.0-36.0); Mean Corpuscular Hemoglobin 31.1 pg (28.0-34.0); Mean Corpuscular Volume 91.3 fL (80-94); Mean Platelet Volume 9.6 fL (7.4-10.4); Monocytes # 1.1 10^3/uL (0.2-0.9); Monocytes % 9.2 %; Neutrophils # 8.97 10^3/uL (1.8-7.7); Neutrophils % 73.2 %; Nucleated Red Blood Cells % 0 %; Platelet Count 260 10^3/cmm (130-400); Red Cell Distribution Width 13.3 % (12.1-15.1); White Blood Count 12.2 10^3/uL (4.0-10.0)
[2021-04-06 16:04] LABS: Alanine Aminotransferase < 5 U/L (0-41); Albumin Level 4.3 g/dL (3.5-5.2); Alkaline Phosphatase 91 IU/L (40-130); Anion Gap 17.8 (5-19); Aspartate Amino Transferase 33 U/L (0-40); Blood Urea Nitrogen 14 mg/dL (8-23); Calcium 8.9 mg/dL (8.5-10.5); Carbon Dioxide 22 mmol/L (22-29); Chloride 94 mmol/L (98-107); Globulin 2.2 g/dL (1.3-4.6); Glucose 90 mg/dL (65-115); Osmolality Calculated 270 mOsm/kg (285-295); Potassium 3.8 mmol/L (3.5-5.1); Sodium 130 mmol/L (136-145); Total Bilirubin 1.1 mg/dL (0.15-1.2); Total Protein 6.5 g/dL (6.6-8.7)
[2021-04-06 16:06] LABS: Bilirubin Urine Neg (Negative); Blood Urine Neg (Negative); Glucose Urine UA Norm (Normal); Ketones Urine 1+ (Negative); Leukocyte Esterase Urine Negative (Negative); Nitrate Urine Negative (Negative); Protein Urine Neg (Negative); Specific Gravity, Urine 1.015 (1.005-1.030); Urine Appearance Clear (CLEAR); Urine Color Yellow (Yellow); Urobilinogen Urine Neg (Negative); pH Urine 6.5 (5-7)
[2021-04-06] MEDS: sodium chloride 0.9% 1,000 ML 999 ML IV (18:41)
[2021-04-06] MEDS: sodium chlor 0.9% + KCl 20 mEq 20 MEQ/1,000 ML BAG 125 MEQ IV (18:41)
--- NOTE | 2021-04-06 19:08 | PC.NURSE ---
Report from SOFIA Chavez
--- NOTE | 2021-04-06 22:17 | PC.NURSE ---
Assisted with urinal. Repositioned for comfort. Lights down at pt's request. No further needs noted at this time.
[2021-04-06] MEDS: FUROsemide 10 mg/mL SDV 4mL 40 MG IVP (23:22)
--- NOTE | 2021-04-06 23:38 | PC.NURSE ---
Assisted with urinal. Repositioned back into bed; lights down for comfort. VSS. No other needs identified at this time.
[2021-04-07] VITALS (20 sets, daily range): BP systolic 112–163; BP diastolic 77–118; PULSE 103–132; RESP 16–22; TEMP 36.5–36.8; O2SAT 94–96
--- NOTE | 2021-04-07 01:59 | PC.NURSE ---
ASsisted with urinal.
[2021-04-07 03:38] LABS: Anion Gap 17.4 (5-19); Blood Urea Nitrogen 13 mg/dL (8-23); Calcium 8.3 mg/dL (8.5-10.5); Carbon Dioxide 22 mmol/L (22-29); Chloride 93 mmol/L (98-107); Glucose 91 mg/dL (65-115); Osmolality Calculated 268 mOsm/kg (285-295); Potassium 3.4 mmol/L (3.5-5.1); Sodium 129 mmol/L (136-145)
[2021-04-07] MEDS: sodium chlor 0.9% + KCl 20 mEq 20 MEQ/1,000 ML BAG 125 MEQ IV ×2 (03:46→11:22)
[2021-04-07] MEDS: sodium chloride 0.9% (100 ml) 100 ML (04:26)
--- NOTE | 2021-04-07 05:48 | PC.NURSE ---
Assisted with urinal.
--- NOTE | 2021-04-07 08:26 | ECG_ITS ---
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1945 Requested By: Ismael Magdaleno Order Number: [id number] Reading MD: RADHA KAHN Measurements Intervals [place] Rate: 131 P: -56 AK: 66 QRS: 71 QRSD: 118 T: 83 QT: 299 QTc: 442 Interpretive Statements SINUS TACHYCARDIA WITH SHORT AK INTERVAL MODERATE INTRAVENTRICULAR CONDUCTION DELAY [110+ ms QRS DURATION] NONSPECIFIC ST & T-WAVE ABNORMALITY ABNORMAL RHYTHM ECG Compared to ECG 04/05/2021 23:14:59 Short AK interval now present Atrial flutter no longer present Possible ischemia no longer present T-wave abnormality still present Electronically Signed On 04-07-2021 22:32:31 CDT by RADHA KAHN [email or web address]/[id number]
[2021-04-07] MEDS: metoprolol tartrate 25 mg Tablet 12.5 MG PO (09:50)
[2021-04-07] MEDS: ampicillin-sulbactam 3 GM in sodium chloride 0.9% (plus) 50 ML IV (10:56)
--- NOTE | 2021-04-07 15:07 | PC.NURSE ---
I reported the high bp to the nurse 148/101 and 160/106
--- NOTE | 2021-04-07 15:30 | P.HP_ITS ---
Providers/Chief Complaint Admitting Physician: Sunil Johnson MD Primary Care Provider: Alexander Hayes MD Chief Complaint: Low 02, SOB, Nausea History of Present Illness Prashant Durham is a 75 year old male who has been coughing and short of breath for 4 to 5 days. He was in the emergency department on April 05 and was going to be admitted at that time but as there were no beds in the foreseeable future family ended up taking him home. He returns with no improvement today. He has had no fever at home. He coughs frequently with trying to eat any kind of food or drink. He is short of breath with any kind of exertion. He has past history of aspiration. He does not want a PEG tube. He does want treatment for pneumonia if needed. A family member is with him during my interview who is his advocate. He also reports that his daily care secondary to Parkinson's, anabella ilitation, frequent aspiration, and weakness are becoming more more difficult and that he needs to likely transition to a nursing facility. Caregiver also reports he has shaking episodes at times and believes he may have a seizure disorder. In the emergency department he received IV antibiotics in the form of Unasyn, a dose of Lasix, and a dose of metoprolol 12.5 mg. Review of Systems General: Reports: 10 or more systems reviewed and unremarkable except in HPI and below Const: Reports: fatigue; Denies: fever(s) Eyes: Denies: change in vision ENMT: Denies: throat pain Card: Denies: chest pain Resp: Reports: dyspnea and non-productive cough GI: Reports: heartburn; Denies: abdominal pain or vomiting : Denies: flank pain Musc: Denies: neck pain Skin/Breast: Denies: rash Neuro: Denies: headache(s) Psych: Denies: anxiety or depression Endo: Denies: polyuria Shaheen/Lymph: Denies: easy bruising All/Imm: Denies: urticaria Medications/Allergies Home Medications Medication Instructions Recorded Confirmed Last Taken Type carbidopa-levodopa 2 tab PO .FIVE TIMES A DAY 04/10/20 04/06/21 04/06/21 History felodipine 5 mg PO BID 04/10/20 04/06/21 04/06/21 History hawthorn 500 mg PO BEDTIME 04/10/20 04/06/21 04/06/21 History taurine 1,000 mg PO DAILY PRN 04/10/20 04/06/21 04/06/21 History thiamine HCl (vitamin B1) [Vitamin 250 mg PO BEDTIME 04/10/20 04/06/21 04/05/21 History B-1] mirtazapine 15 mg PO BEDTIME 05/03/20 04/06/21 04/05/21 History polyethylene glycol 3350 [Miralax] 17 g PO EVERY OTHER DAY 05/03/20 04/06/21 04/06/21 History meloxicam 7.5 mg PO DAILY PRN 04/05/21 04/06/21 04/06/21 History turmeric 800 mg PO BEDTIME 04/05/21 04/06/21 04/05/21 History clindamycin HCl 300 mg PO Q8H 10 Days #30 cap 04/06/21 04/06/21 Unknown Rx Allergies Allergy/AdvReac Type Severity Reaction Status Date / Time No Known Allergies Allergy Verified 04/05/21 17:24 PFSH Acute PFSH: Medical History (Updated 04/07/21 @ 17:25 by Sunil Johnson MD) Hyponatremia Lewy body dementia Parkinson's disease Varicella zoster Family History (Updated 04/07/21 @ 17:16 by Sunil Johnson MD) Other Cancer Diabetes Social History (Updated 04/07/21 @ 17:16 by Sunil Johnson MD) Smoking and tobacco status: never smoked Alcohol intake: former Supplemental PFSH Information: History of right hand surgery in the past Vitals/I&O/Wt Last Vital Signs Temp 98.2 F 04/07/21 15:00 Pulse 124 H 04/07/21 15:00 Resp 18 04/07/21 15:00 BP 160/106 04/07/21 15:07 Pulse Ox 96 04/07/21 15:00 04/07/21 04/07/21 04/07/21 06:59 14:59 22:59 Intake Total 1100 / 2150 950 / 950 Output Total 1950 / 1950 Balance -850 / 200 950 / 950 Weight last 48 hrs Weight 61.235 kg Physical Exam Narrative: EXAM NARRATIVE: General exam demonstrates a conversant male, who appears short of breath on oxygen. HEENT: Pupils equally round. Oropharynx clear. Dentition poor. Neck is supple no lymphadenopathy or thyromegaly Cardiovascular tachycardic, no murmur Lungs coarse breath sounds at the bases Abdomen is soft with positive bowel sounds Extremities no cyanosis clubbing or edema, cap refill brisk Skin no rash Neuro no focal deficits. Rigidity is noted consistent with Parkinson's. Data : 04/07/21 15:29 04/07/21 03:05 Micro: Microbiology 04/06/21 16:09 Blood Culture - Preliminary Blood SPECIMEN COLLECTED 04/06/21 15:42 Blood Culture - Preliminary Blood SPECIMEN COLLECTED Other data: Troponin on April 05, 2020 with repeat of 18. BNP was 2 3295 Urinalysis negative Rapid Covid negative today. PCR - April 05. Chest x-ray demonstrates right lower lobe pneumonia, bilateral pleural effusions EKG demonstrates sinus tachycardia. Normal axis. Nonspecific ST-T wave changes. A&P Assessment and plan (1) Aspiration pneumonia: From history, clearly has problems with aspiration pneumonitis. Right lower lobe infiltrate would fit with this picture. Zosyn IV Check MRSA PCR Visited with family and patient regarding PEG tube which she would never have. Therefore will institute a dysphagia level 2 diet with nectar thick liquids. Speech therapy to consult to discuss with patient technique for lowering risk of aspiration. Status: Acute (2) Hyponatremia: He received a dose of Lasix late last night. We will give 20 mg IV now. I am worried he may have some element of acute diastolic heart failure. Family and patient did not really want any extensive work-up, so an echocardiogram will not be ordered. Check TSH and cortisol level. We will also check magnesium level. 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 There appears to be a P wave fused with the beginning of the QRS complex According to family whenever they have checked his vitals in the last 6 months or more his heart rate has been elevated to 120s Add metoprolol 25 mg twice daily Status: Acute (4) Parkinson's disease: Continue his home medications Status: Acute (5) Lewy body dementia: Status: Acute Additional A&P Information Question of seizures. Seizure, fall precautions. Allow natural . Confirmed with patient and family Lovenox for DVT prophylaxis Attestations Medical Necessity Statement*: Will need greater than 2 midnight stay for treatment of aspiration pneumonitis in this patient requiring oxygen with abnormal vital signs. Time Spent in Patient Care: Greater than 35 minutes Coding Level of Care Code Acute Biological Photographer for Chg Fwd Diagnoses Aspiration pneumonia J69.0 Hyponatremia E87.1 Atrial tachycardia I47.1 Parkinson's disease G20 Lewy body dementia G31.83; F02.80
[2021-04-07 15:36] LABS: Basophils # 0.1 10^3/uL (0.0-0.1); Basophils % 0.4 %; Eosinophils % 0.2 %; Hematocrit 42.7 % (42.0-52.0); Hemoglobin 14.1 g/dL (11.7-16.6); Lymphocytes # 0.6 10^3/uL (0.8-4.8); Lymphocytes % 3.9 %; Mean Corpuscular Hemoglobin 31.1 pg (28.0-34.0); Mean Corpuscular Volume 94.1 fL (80-94); Monocytes # 0.7 10^3/uL (0.2-0.9); Monocytes % 5.2 %; Neutrophils % 89.8 %; Nucleated Red Blood Cells % 0 %; Platelet Count 245 10^3/cmm (130-400); Red Blood Count 4.54 10^6/uL (4.1-5.3); Red Cell Distribution Width 13.7 % (12.1-15.1); White Blood Count 14.1 10^3/uL (4.0-10.0)
[2021-04-07 16:11] LABS: Cortisol Random 30.82 ug/dL (2.47-19.5)
[2021-04-07] MEDS: FUROsemide 10 mg/mL SDV 2mL 20 MG IVP (18:29)
[2021-04-07] MEDS: pantoprazole DR 40 mg Tablet PO (19:10)
[2021-04-07] MEDS: carbidopa-levodopa 25-100mg Tablet 2 EACH PO ×2 (19:10→22:30)
[2021-04-07] MEDS: enoxaparin 40 mg/0.4 mL Syringe SUBCUT (19:11)
[2021-04-07 19:33] LABS: Magnesium 2.2 mg/dL (1.7-2.3)
[2021-04-07] MEDS: metoprolol tartrate 25 mg Tablet PO (20:48)
[2021-04-07] MEDS: piperacillin-tazobactam 3.375 GM in sodium chloride 0.9% (plus) 50 ML IV (20:50)
[2021-04-08] VITALS (10 sets, daily range): BP systolic 94–138; BP diastolic 60–98; PULSE 94–123; RESP 16–20; TEMP 36.5–37.1; O2SAT 92–97
[2021-04-08] MEDS: piperacillin-tazobactam 3.375 GM in sodium chloride 0.9% (plus) 50 ML IV ×3 (05:30→20:26)
[2021-04-08] MEDS: carbidopa-levodopa 25-100mg Tablet 2 EACH PO ×5 (05:31→23:21)
[2021-04-08 05:54] LABS: Basophils # 0.1 10^3/uL (0.0-0.1); Basophils % 0.6 %; Eosinophils # 0.3 10^3/uL (0.0-0.8); Eosinophils % 3.5 %; Hematocrit 38.5 % (42.0-52.0); Hemoglobin 12.9 g/dL (11.7-16.6); Lymphocytes # 1.1 10^3/uL (0.8-4.8); Lymphocytes % 12.5 %; Mean Corpuscular HGB Conc 33.5 g/dL (30.0-36.0); Mean Corpuscular Hemoglobin 31.5 pg (28.0-34.0); Mean Corpuscular Volume 93.9 fL (80-94); Mean Platelet Volume 9.6 fL (7.4-10.4); Monocytes # 0.8 10^3/uL (0.2-0.9); Monocytes % 9.5 %; Neutrophils # 6.31 10^3/uL (1.8-7.7); Neutrophils % 73.7 %; Nucleated Red Blood Cells % 0 %; Platelet Count 226 10^3/cmm (130-400); Red Cell Distribution Width 13.8 % (12.1-15.1); White Blood Count 8.6 10^3/uL (4.0-10.0)
[2021-04-08 06:15] LABS: Alanine Aminotransferase < 5 U/L (0-41); Albumin Level 3.6 g/dL (3.5-5.2); Alkaline Phosphatase 78 IU/L (40-130); Anion Gap 13.2 (5-19); Aspartate Amino Transferase 32 U/L (0-40); Blood Urea Nitrogen 16 mg/dL (8-23); Carbon Dioxide 25 mmol/L (22-29); Chloride 99 mmol/L (98-107); Globulin 1.8 g/dL (1.3-4.6); Glucose 70 mg/dL (65-115); Osmolality Calculated 278 mOsm/kg (285-295); Potassium 3.2 mmol/L (3.5-5.1); Sodium 134 mmol/L (136-145); Total Bilirubin 0.9 mg/dL (0.15-1.2); Total Protein 5.4 g/dL (6.6-8.7)
[2021-04-08 09:51] LABS: Magnesium 2.1 mg/dL (1.7-2.3)
[2021-04-08] MEDS: pantoprazole DR 40 mg Tablet PO ×2 (10:00→17:37)
[2021-04-08] MEDS: potassium chloride oral liq 20 mEq/15 mL UDC 40 MEQ PO ×2 (10:00→13:52)
[2021-04-08] MEDS: metoprolol tartrate 25 mg Tablet PO ×2 (10:00→20:27)
--- NOTE | 2021-04-08 10:50 | PC.CHAP ---
Pastoral Care Encounter/Spiritual Assessment Type of Contact [] Declined thread spooler visit [] Patient/Family/Request visit [] Outpatient visit [] Follow-up visit [] Physician referral [] Code/Alert [x] Routine visit [] Staff referral [] Actively dying [] Patient sleeping [] Family support [] [] Out of room [] Palliative care [] [] Receiving care in room [] Pre-surgical visit [] Trauma [] Long length of stay [] ICU visit [] Other: Relational/Emotional Strength [x] Patient feels connected with others/family/visitors/staff [] Distress [] Loneliness/isolation [] Abandonment Spirituality of Patient [x] Person of Ave [] Attends Pentecostalism of their Ave [x] Believes in Prayer [] Reads Bible or Yarsani materials [] There are Spiritual issues to be addressed Clinical Advisor Interventions [x] Prayer [x] Active listening [x] Non-anxious presence [] Spiritual/emotional support [] Crisis/trauma care [] Spiritual counseling [] Bereavement support [] Provided bereavement packet [] Provided Bible/devotional materials [] Provided toy/stuffed animal, coloring book to patient or family member [] Provided Communion [] Anointing/[place] [] Salvation [] Completed spiritual assessment [] Other: Impact on Illness or Injury [] Angry [] Fearful [] Anxious [] Often cries [] Exhaustion [] Unable to work [] Unable to attend shinto [] Unable to walk/stand [] Unable to read [] Unable to drive [] Unable to eat/drink [] Unable to sleep [] Unable to be with family [] Patient intubated [] Other: Summary Time spent with patient 10 min
--- NOTE | 2021-04-08 13:28 | PM.PN ---
Subjective Subjective: Interval history: Prsahant had some confusion last night. He is reoriented at this morning. Reports he has no shortness of breath on his oxygen. Coughing up some colored sputum. Medications: Reviewed: Yes Vitals/I&O/Wt Last Vital Signs Temp 97.7 F 04/08/21 12:00 Pulse 106 H 04/08/21 12:00 Resp 18 04/08/21 12:00 BP 112/78 04/08/21 12:00 Pulse Ox 97 04/08/21 12:00 04/07/21 04/08/21 04/08/21 22:59 06:59 14:59 Intake Total 1650 / 2600 50 / 2650 170 / 170 Output Total 300 / 300 Balance 1650 / 2600 -250 / 2350 170 / 170 Physical Exam Narrative: EXAM NARRATIVE: General exam demonstrates a conversant male Neck is supple no lymphadenopathy or thyromegaly Cardiovascular tachycardic, no murmur Lungs coarse breath sounds at the bases Abdomen is soft with positive bowel sounds Extremities no cyanosis clubbing or edema, cap refill brisk Data : 04/08/21 04:58 04/08/21 04:58 Micro: Microbiology 04/06/21 16:09 Blood Culture - Preliminary Blood NEGATIVE TO DATE 04/06/21 15:42 Blood Culture - Preliminary Blood NEGATIVE TO DATE A&P Assessment and plan (1) Aspiration pneumonia: From history, clearly has problems with aspiration pneumonitis. Right lower lobe infiltrate would fit with this picture. Continue IV Zosyn MRSA PCR pending Visited with family and patient regarding PEG tube which she would never have. Therefore will institute a dysphagia level 2 diet with nectar thick liquids. Speech therapy to consult to discuss with patient technique for lowering risk of aspiration. Status: Acute (2) Hyponatremia: He received a dose of Lasix late last night. We will give 20 mg IV now. I am worried he may have some element of acute diastolic heart failure. Family and patient did not really want any extensive work-up, so an echocardiogram will not be ordered. Check TSH and cortisol level. We will also check magnesium level. 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 There appears to be a P wave fused with the beginning of the QRS complex According to family whenever they have checked his vitals in the last 6 months or more his heart rate has been elevated to 120s Continue metoprolol 25 mg twice daily. Heart rate has come down nicely. Reduce Plendil Status: Acute (4) Parkinson's disease: Continue his home medications Status: Acute (5) Lewy body dementia: Status: Acute Additional A&P Information Question of seizures. Seizure, fall precautions. Hypokalemia, supplement. Magnesium level normal Allow natural . Confirmed with patient and family Lovenox for DVT prophylaxis Attestations Medical Necessity Statement*: Needs continued hospitalization for IV antibiotics secondary to aspiration pneumonitis. Coding Level of Care Code Acute Driver Trainee for [facility] Fw Diagnoses Aspiration pneumonia J69.0 Hyponatremia E87.1 Atrial tachycardia I47.1 Parkinson's disease G20 Lewy body dementia G31.83; F02.80
[2021-04-08] MEDS: enoxaparin 40 mg/0.4 mL Syringe SUBCUT (17:37)
[2021-04-09] VITALS (10 sets, daily range): BP systolic 109–149; BP diastolic 81–104; PULSE 111–130; RESP 15–21; TEMP 36.4–36.7; O2SAT 89–97
[2021-04-09] MEDS: piperacillin-tazobactam 3.375 GM in sodium chloride 0.9% (plus) 50 ML IV ×3 (04:42→20:40)
[2021-04-09] MEDS: carbidopa-levodopa 25-100mg Tablet 2 EACH PO ×5 (05:10→22:19)
--- NOTE | 2021-04-09 05:46 | PC.NURSE ---
Shift Note Frequent safety and comfort rounds continue. Orders and/or nursing care completed as indicated. Patient monitored for response to intervention and treatment. Patient became short of breath during the night and Oxygen sat was 88% on 2L NC, Patient oxygen increased to 4L patient O2 sat at 93%. Patient lung sounds coarse on assessment, patient educated about thickened liquids and to slow down when he drinks. Nurse removed all drinks from the bedside and replaced them with honey thick liquids. Patient seemed to tolerate these thickened fluids better. Patient has productive cough, producing cream colored sputum. Respiratory therapist notified of increase in Oxygen requirement. Patient has had adequate urine output for the night over 600 mls. Patient urinates often during the night and in small amounts this causes him to have a restless night and not sleep well. Patient resting in his bed at this time, denies any needs at this time. Will continue to monitor.
[2021-04-09 05:51] LABS: Basophils # 0.1 10^3/uL (0.0-0.1); Basophils % 0.8 %; Eosinophils # 0.4 10^3/uL (0.0-0.8); Eosinophils % 3.1 %; Hematocrit 44.8 % (42.0-52.0); Hemoglobin 14.2 g/dL (11.7-16.6); Lymphocytes # 1.8 10^3/uL (0.8-4.8); Mean Corpuscular HGB Conc 31.7 g/dL (30.0-36.0); Mean Corpuscular Hemoglobin 31.1 pg (28.0-34.0); Mean Platelet Volume 9.8 fL (7.4-10.4); Monocytes # 1.2 10^3/uL (0.2-0.9); Neutrophils # 7.71 10^3/uL (1.8-7.7); Neutrophils % 68.6 %; Nucleated Red Blood Cells % 0 %; Platelet Count 284 10^3/cmm (130-400); Red Blood Count 4.57 10^6/uL (4.1-5.3); Red Cell Distribution Width 14.2 % (12.1-15.1); White Blood Count 11.3 10^3/uL (4.0-10.0)
[2021-04-09 06:09] LABS: Blood Urea Nitrogen 19 mg/dL (8-23); Calcium 8.5 mg/dL (8.5-10.5); Carbon Dioxide 23 mmol/L (22-29); Chloride 97 mmol/L (98-107); Glucose 117 mg/dL (65-115); Osmolality Calculated 279 mOsm/kg (285-295); Sodium 133 mmol/L (136-145)
[2021-04-09 06:10] LABS: Anion Gap 17.3 (5-19); Potassium 4.3 mmol/L (3.5-5.1)
--- NOTE | 2021-04-09 07:29 | PC.NURSE ---
I reported the high bp and pulse to the nurse 149/104 130p
[2021-04-09] MEDS: pantoprazole DR 40 mg Tablet PO ×2 (09:19→18:25)
[2021-04-09] MEDS: metoprolol tartrate 25 mg Tablet 37.5 MG PO ×2 (09:25→20:40)
--- NOTE | 2021-04-09 10:42 | P.PN_ITS ---
Subjective Subjective: Interval history: Prashant reports he is little bit more short of breath today. Nursing reports he may have aspirated last night when he grabbed a bottle of water and started drinking it and there was no thickener in it. Medications: Reviewed: Yes Vitals/I&O/Wt Last Vital Signs Temp 97.6 F 04/09/21 07:28 Pulse 130 H 04/09/21 07:28 Resp 16 04/09/21 07:28 BP 149/104 04/09/21 07:28 Pulse Ox 94 04/09/21 07:28 04/08/21 04/09/21 04/09/21 22:59 06:59 14:59 Intake Total 50 / 220 530 / 750 50 / 50 Output Total 500 / 500 650 / 1150 Balance -450 / -280 -120 / -400 50 / 50 Physical Exam Narrative: EXAM NARRATIVE: General exam demonstrates a conversant male Neck is supple no lymphadenopathy or thyromegaly Cardiovascular tachycardic, no murmur Lungs coarse breath sounds at the bases. Faint expiratory wheeze. Abdomen is soft with positive bowel sounds Extremities no cyanosis clubbing or edema, cap refill brisk Data : 04/09/21 04:30 04/09/21 04:30 A&P Assessment and plan (1) Aspiration pneumonia: From history, clearly has problems with aspiration pneumonitis. Right lower lobe infiltrate would fit with this picture. Continue IV Zosyn MRSA PCR pending Visited with family and patient regarding PEG tube which she would never have. Therefore will institute a dysphagia level 2 diet with nectar thick liquids. Speech therapy to consult to discuss with patient technique for lowering risk of aspiration. They were able to visit him on April 08. Add pulmonary toilet He has had multiple recent Covid test tests rapid and PCR. Last PCR - April 05. Status: Acute (2) Hyponatremia: He received a dose of Lasix late last night. Lasix 20 mg IV given April 08. I am worried he may have some element of acute diastolic heart failure. Family and patient did not really want any extensive work-up, so an echocardiogram will not be ordered. Repeat totes today and start oral daily dosing tomorrow TSH and cortisol level checked and normal. 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 There appears to be a P wave fused with the beginning of the QRS complex According to family whenever they have checked his vitals in the last 6 months or more his heart rate has been elevated to 120s Heart rate slightly increased from yesterday. Increase metoprolol to 37.5 mg twice daily.. Reduce Plendil Status: Acute (4) Parkinson's disease: Continue his home medications Status: Acute (5) Lewy body dementia: Status: Acute Additional A&P Information Question of seizures. Seizure, fall precautions. Hypokalemia, supplemented. Magnesium level was normal. Allow natural . Confirmed with patient and family They really want quality of life measures, and would consider do not rehospitalize. They do not want to stop his p.o. intake, realizing aspiration pneumonitis will recur. Lovenox for DVT prophylaxis No need for laboratory tomorrow. Attestations Medical Necessity Statement*: Needs continued hospitalization for IV antibiotics secondary to aspiration pneumonitis. 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
[2021-04-09] MEDS: FUROsemide 10 mg/mL SDV 2mL 20 MG IVP (11:43)
--- NOTE | 2021-04-09 13:21 | PC.NUTR ---
Nutrition assessment for low BMI. Noted only 1 meal consumed since admit per chart review. Spoke with pt and son regarding preferences. Pt eating lunch at time of RD visit, coughing at times. Recommend addition of Ensure plus with meals (at nectar thick consistency) to provide additional kcal. Noted preferences for oatmeal, banana, honey, and hot tea. Recommend encouragement and assistance at meals as needed to optimize nutritional intake. See full RD assessment for further details.
--- NOTE | 2021-04-09 15:46 | PC.NURSE ---
i reported high pluse 117 to the nurse
[2021-04-09] MEDS: ipratropium-albuterol 3 mL Neb INHALATION ×2 (16:09→20:45)
[2021-04-09] MEDS: enoxaparin 40 mg/0.4 mL Syringe SUBCUT (18:25)
--- NOTE | 2021-04-09 21:12 | XRR_ITS ---
PROCEDURE INFORMATION: Exam: XR Left Shoulder Exam date and time: 04/09/2021 9:12 PM Age: 75 years old Clinical indication: Pain; Shoulder; Left TECHNIQUE: Imaging protocol: XR Left shoulder. Views: 2 or more views. Total images: 3 COMPARISON: CR XR shoulder LT min 2V* [id number] 09/08/2020 11:36 AM FINDINGS: Bones/joints: No visible fracture, subluxation, or dislocation. High-riding left shoulder often seen in chronic rotator cuff tear. Osteopenia/osteoporosis. Mild arthrosis acromioclavicular joint. No visible rib fracture within the field of view. Lungs: Incidental note of a moderate volume left pleural effusion with consolidated alveolar airspace disease left lung base. Vasculature: Arteriosclerosis of the thoracic aorta. Soft tissues: Atrophic. XR/XR shoulder LT min 2V* [id number] IMPRESSION: 1. No visible acute osseous abnormality. 2. High-riding left shoulder. 3. Incidental note of a moderate volume left pleural effusion with consolidated alveolar airspace disease left lung base.
[2021-04-09] MEDS: budesonide 0.5 mg/2 mL Neb INHALATION (22:50)
[2021-04-10] VITALS (11 sets, daily range): BP systolic 109–132; BP diastolic 69–90; PULSE 64–130; RESP 16–19; TEMP 36.3–37.1; O2SAT 92–98
[2021-04-10] MEDS: piperacillin-tazobactam 3.375 GM in sodium chloride 0.9% (plus) 50 ML IV ×3 (04:18→21:47)
[2021-04-10] MEDS: carbidopa-levodopa 25-100mg Tablet 2 EACH PO ×5 (05:35→21:47)
[2021-04-10] MEDS: ipratropium-albuterol 3 mL Neb INHALATION ×3 (08:20→21:53)
[2021-04-10] MEDS: budesonide 0.5 mg/2 mL Neb INHALATION ×2 (08:20→21:53)
[2021-04-10] MEDS: FUROsemide 20 mg Tablet PO (08:21)
[2021-04-10] MEDS: metoprolol tartrate 25 mg Tablet 37.5 MG PO (08:21)
[2021-04-10] MEDS: pantoprazole DR 40 mg Tablet PO ×2 (08:21→17:56)
--- NOTE | 2021-04-10 11:31 | PM.PN ---
Subjective Subjective: Interval history: Prashant reports he is doing okay. Feels a little less short of breath. [id number] asked that some MiraLAX be initiated. Medications: Reviewed: Yes Vitals/I&O/Wt Last Vital Signs Temp 97.4 F L 04/10/21 11:14 Pulse 128 H 04/10/21 11:14 Resp 19 H 04/10/21 11:14 BP 123/90 04/10/21 11:14 Pulse Ox 92 04/10/21 11:14 04/09/21 04/10/21 04/10/21 22:59 06:59 14:59 Intake Total 350 / 400 50 / 450 50 / 50 Output Total 400 / 400 250 / 250 Balance -50 / 0 50 / 50 -200 / -200 Physical Exam Narrative: EXAM NARRATIVE: General exam demonstrates a conversant male Neck is supple no lymphadenopathy or thyromegaly Cardiovascular tachycardic, no murmur Lungs coarse breath sounds at the bases. No wheezing heard today. Abdomen is soft with positive bowel sounds Extremities no cyanosis clubbing or edema, cap refill brisk Data : 04/09/21 04:30 04/09/21 04:30 A&P Assessment and plan (1) Aspiration pneumonia: From history, clearly has problems with aspiration pneumonitis. Right lower lobe infiltrate would fit with this picture. Continue IV Zosyn MRSA PCR pending. It has not been collected. I informed nursing. Visited with family and patient regarding PEG tube which she would never have. Therefore will institute a dysphagia level 2 diet with nectar thick liquids. Speech therapy to consult to discuss with patient technique for lowering risk of aspiration. They were able to visit him on April 08. Add pulmonary toilet He has had multiple recent Covid test tests rapid and PCR. Last PCR - April 05. Status: Acute (2) Hyponatremia: He received a dose of Lasix late last night. Lasix 20 mg IV given April 08. I am worried he may have some element of acute diastolic heart failure. Family and patient did not really want any extensive work-up, so an echocardiogram will not be ordered. Starting oral Lasix today. TSH and cortisol level checked and normal. 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 There appears to be a P wave fused with the beginning of the QRS complex According to family whenever they have checked his vitals in the last 6 months or more his heart rate has been elevated to 120s Heart rate slightly increased from yesterday. Increase metoprolol to 50 mg twice daily Discontinue Plendil Status: Acute (4) Parkinson's disease: Continue his home medications Status: Acute (5) Lewy body dementia: Status: Acute Additional A&P Information Question of seizures. Seizure, fall precautions. Hypokalemia, supplemented. Magnesium level was normal. Allow natural . Confirmed with patient and family They really want quality of life measures, and would consider do not rehospitalize. They do want rehabilitation if possible. They do not want to stop his p.o. intake, realizing aspiration pneumonitis will recur. Lovenox for DVT prophylaxis Check laboratory tomorrow. Attestations Medical Necessity Statement*: Needs continued hospital stay for IV antibiotics secondary to aspiration pneumonitis. Awaiting placement at skilled care. 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
--- NOTE | 2021-04-10 11:43 | PC.SOCIAL ---
Pg 2 IMM Explained to pt/family Pg 2 IMM. No questions voiced. Provided pt a copy. Initialed, dated & timed copy a copy & placed in chart.
--- NOTE | 2021-04-10 16:02 | PC.RESP ---
RT Shift Note Frequent safety and respiratory rounds continue. Orders completed as indicated. Patient monitored pre and post treatments throughout shift. Patient Did tolerate treatments appropriately. Condition DidNotChange. Patient and/or medical center representative educated on respiratory treatment and medications. Patient and/or medical center representative Verbally understood instructions. Will continue to monitor patient progress.
[2021-04-10] MEDS: enoxaparin 40 mg/0.4 mL Syringe SUBCUT (17:56)
[2021-04-10] MEDS: polyethylene glycol 3350 Pkt 17 gm PO (17:56)
[2021-04-10] MEDS: metoprolol tartrate 50 mg Tablet PO (21:46)
[2021-04-11] VITALS (12 sets, daily range): BP systolic 106–146; BP diastolic 71–105; PULSE 102–130; RESP 16–19; TEMP 36.3–37.2; O2SAT 92–98
[2021-04-11] MEDS: ipratropium-albuterol 3 mL Neb INHALATION ×2 (05:17→20:07)
[2021-04-11 06:29] LABS: Basophils # 0.1 10^3/uL (0.0-0.1); Eosinophils # 0.3 10^3/uL (0.0-0.8); Eosinophils % 2.8 %; Hematocrit 44.4 % (42.0-52.0); Hemoglobin 14.4 g/dL (11.7-16.6); Lymphocytes # 1.4 10^3/uL (0.8-4.8); Lymphocytes % 15.8 %; Mean Corpuscular HGB Conc 32.4 g/dL (30.0-36.0); Mean Corpuscular Hemoglobin 31.1 pg (28.0-34.0); Mean Corpuscular Volume 95.9 fL (80-94); Mean Platelet Volume 9.3 fL (7.4-10.4); Monocytes # 0.9 10^3/uL (0.2-0.9); Monocytes % 9.8 %; Neutrophils % 70.3 %; Nucleated Red Blood Cells % 0 %; Platelet Count 250 10^3/cmm (130-400); Red Blood Count 4.63 10^6/uL (4.1-5.3); White Blood Count 8.8 10^3/uL (4.0-10.0)
[2021-04-11] MEDS: carbidopa-levodopa 25-100mg Tablet 2 EACH PO ×5 (06:42→21:51)
[2021-04-11] MEDS: piperacillin-tazobactam 3.375 GM in sodium chloride 0.9% (plus) 50 ML IV ×3 (06:42→21:51)
--- NOTE | 2021-04-11 06:54 | PC.RESP ---
RT Shift Note Frequent safety and respiratory rounds continue. Orders completed as indicated. Patient monitored pre and post treatments throughout shift. Patient tolerated treatments appropriately. Condition not changed. Patient and/or office services representative educated on respiratory treatment and medications. Patient and/or office services representative verbalized understanding. Will continue to monitor patient progress.
[2021-04-11 07:00] LABS: Anion Gap 13.6 (5-19); Blood Urea Nitrogen 18 mg/dL (8-23); Calcium 8.5 mg/dL (8.5-10.5); Carbon Dioxide 30 mmol/L (22-29); Chloride 97 mmol/L (98-107); Glucose 100 mg/dL (65-115); Osmolality Calculated 286 mOsm/kg (285-295); Potassium 3.6 mmol/L (3.5-5.1); Sodium 137 mmol/L (136-145)
[2021-04-11] MEDS: metoprolol tartrate 50 mg Tablet PO ×2 (08:50→21:51)
[2021-04-11] MEDS: FUROsemide 20 mg Tablet PO (08:50)
[2021-04-11] MEDS: polyethylene glycol 3350 Pkt 17 gm PO ×2 (08:50→17:30)
[2021-04-11] MEDS: pantoprazole DR 40 mg Tablet PO ×2 (08:50→17:30)
--- NOTE | 2021-04-11 09:41 | ECG_ITS ---
[facility] Test Date: 2021-04-11 Pat Name: Prashant Druham Department: Room: 272 Gender: Male [employer] Analyst: : 1945 Requested By: Ozzie Melendez Order Number: [id number] Mandi MD: Ever Marroquin M.D. Measurements Intervals [place] Rate: 129 P: -80 WI: 144 QRS: 38 QRSD: 109 T: 95 QT: 280 QTc: 410 Interpretive Statements SINUS TACHYCARDIA NONSPECIFIC ST & T-WAVE ABNORMALITY Compared to ECG 04/07/2021 08:32:36 Short WI interval no longer present Intraventricular conduction delay no longer present T-wave abnormality still present Electronically Signed On 04-12-2021 12:18:50 CDT by Ever Marroquin M.D. [id number]
[2021-04-11] MEDS: dilTIAZem 30 mg Tablet PO ×3 (10:10→21:51)
--- NOTE | 2021-04-11 10:42 | PM.PN ---
Subjective Subjective: Interval history: Hospital course, labs appreciated. Prashant reports he is doing okay, feeling better than yesterday and when he came in. States when taking big sip of fluids starts having cough and SOB. Agrees with no pEG, code status, placement, no re-hospitalization. Brother in-law at bedside. Medications: Reviewed: Yes Vitals/I&O/Wt Last Vital Signs Temp 98.9 F 04/11/21 08:00 Pulse 127 H 04/11/21 08:00 Resp 16 04/11/21 08:00 BP 136/105 04/11/21 08:00 Pulse Ox 97 04/11/21 08:00 04/10/21 04/11/21 04/11/21 22:59 06:59 14:59 Intake Total 50 / 100 50 / 150 Output Total 375 / 1325 Balance 50 / -850 -325 / -1175 Physical Exam Narrative: EXAM NARRATIVE: General exam demonstrates a conversant male Neck is supple no lymphadenopathy or thyromegaly Cardiovascular tachycardic, no murmur Lungs coarse breath sounds at the bases. No wheezing heard today. Abdomen is soft with positive bowel sounds Extremities no cyanosis clubbing or edema, cap refill brisk Data : 04/11/21 06:17 04/11/21 06:17 Micro: Microbiology 04/10/21 12:05 MRSA Culture - Final Nose A&P Assessment and plan (1) Aspiration pneumonia: From history, clearly has problems with aspiration pneumonitis. Right lower lobe infiltrate would fit with this picture. Continue IV Zosyn MRSA PCR negative. Family and patient refusing PEG tube.. Therefore will institute a dysphagia level 2 diet with nectar thick liquids. Speech therapy to consult to discuss with patient technique for lowering risk of aspiration. They were able to visit him on April 08. C/w pulmonary toilet He has had multiple recent Covid test tests rapid and PCR. Last PCR - April 05. Status: Acute (2) Hyponatremia: Resolved. He received a dose of Lasix late last night. Lasix 20 mg IV given April 08. Possibility of acute diastolic HF. Family and patient did not really want any extensive work-up, so an echocardiogram will not be ordered. Starting oral Lasix today. TSH and cortisol level checked and normal. Status: Acute (3) Atrial tachycardia: Still tachycardic. Tele monitor. C/w Metoprolol 50 mg PO BID, Cardizem 30 Q8h. Will uptitrate as per BP and HR. Status: Acute (4) Parkinson's disease: Continue his home medications Status: Acute (5) Lewy body dementia: Status: Acute (6) HTN (hypertension): BP elevated. Likely component central as well Meds as above. Goal less than 140/90 mmhg. Uptitrate meds accordingly. Status: Acute Additional A&P Information Question of seizures. Seizure, fall precautions. Hypokalemia, supplemented. Magnesium level was normal. Allow natural . Confirmed with patient and family They really want quality of life measures, and would consider do not rehospitalize. They do want rehabilitation if possible. They do not want to stop his p.o. intake, realizing aspiration pneumonitis will recur. Lovenox for DVT prophylaxis No labs in AM. Attestations Medical Necessity Statement*: Needs continued hospital stay for IV antibiotics secondary to aspiration pneumonitis. Awaiting safe placement. Time Spent in Patient Care: Greater than 35 minutes (>than 50% of time spent in counselling and/or direct pt care on unit). Coding Level of Care Code Acute Vp [employer] Crm for [employer] Diagnoses Aspiration pneumonia J69.0 Hyponatremia E87.1 Atrial tachycardia I47.1 Parkinson's disease G20 Lewy body dementia G31.83; F02.80 HTN (hypertension) I10
[2021-04-11] MEDS: enoxaparin 40 mg/0.4 mL Syringe SUBCUT (17:30)
[2021-04-11] MEDS: budesonide 0.5 mg/2 mL Neb INHALATION (20:07)
[2021-04-12] VITALS (19 sets, daily range): BP systolic 134–163; BP diastolic 82–98; PULSE 90–126; RESP 16–108; TEMP 36.4–36.6; O2SAT 90–96
[2021-04-12] MEDS: ipratropium-albuterol 3 mL Neb INHALATION ×4 (03:02→21:49)
[2021-04-12] MEDS: piperacillin-tazobactam 3.375 GM in sodium chloride 0.9% (plus) 50 ML IV ×3 (06:11→21:27)
[2021-04-12] MEDS: carbidopa-levodopa 25-100mg Tablet 2 EACH PO ×5 (06:12→21:29)
[2021-04-12] MEDS: dilTIAZem 30 mg Tablet PO ×4 (08:10→21:30)
[2021-04-12] MEDS: FUROsemide 20 mg Tablet PO (08:10)
[2021-04-12] MEDS: polyethylene glycol 3350 Pkt 17 gm PO (08:11)
[2021-04-12] MEDS: metoprolol tartrate 50 mg Tablet PO ×2 (08:11→21:29)
[2021-04-12] MEDS: pantoprazole DR 40 mg Tablet PO ×2 (08:11→17:06)
[2021-04-12] MEDS: budesonide 0.5 mg/2 mL Neb INHALATION ×2 (09:01→21:50)
--- NOTE | 2021-04-12 10:17 | PM.PN ---
Subjective Subjective: Interval history: No acute events overnight. Today morning son-in-law at bedside. Patient has just gotten done with a shower. He is off oxygen and doing well. Does not have any tachypnea. Patient did have an episode of choking during breakfast today as per the son-in-law. Patient states he is feeling better than before. Medications: Reviewed: Yes Vitals/I&O/Wt Last Vital Signs Temp 97.8 F 04/12/21 09:14 Pulse 126 H 04/12/21 09:14 Resp 18 04/12/21 09:14 BP 152/92 04/12/21 08:00 Pulse Ox 96 04/12/21 09:14 04/11/21 04/12/21 04/12/21 22:59 06:59 14:59 Intake Total 170 / 220 50 / 270 Output Total 500 / 500 225 / 725 200 / 200 Balance -330 / -280 -175 / -455 -200 / -200 Physical Exam Narrative: EXAM NARRATIVE: General exam demonstrates a conversant male Neck is supple no lymphadenopathy or thyromegaly Cardiovascular tachycardic, no murmur Lungs coarse breath sounds at the bases. No wheezing heard today. Abdomen is soft with positive bowel sounds Extremities no cyanosis clubbing or edema, cap refill brisk Data : 04/11/21 06:17 04/11/21 06:17 Micro: Microbiology 04/06/21 16:09 Blood Culture - Final Blood NO GROWTH AFTER 5 DAYS 04/06/21 15:42 Blood Culture - Final Blood NO GROWTH AFTER 5 DAYS A&P Assessment and plan (1) Aspiration pneumonia: From history, clearly has problems with aspiration pneumonitis. Right lower lobe infiltrate would fit with this picture. Continue IV Zosyn to finish an overall 7-day course. Can transition to oral Levaquin and doxycycline on discharge. MRSA PCR negative. Family and patient refusing PEG tube. Therefore will institute a dysphagia level 2 diet with nectar thick liquids. Speech therapy to consult to discuss with patient technique for lowering risk of aspiration. They were able to visit him on April 08. C/w pulmonary toilet He has had multiple recent Covid test tests rapid and PCR. Last PCR - April 05. Status: Acute (2) Atrial tachycardia: Heart rate better now though still has episodes of tachycardia. Continue with telemetry monitoring. Continue with oral metoprolol 50 mg twice daily. Increase Cardizem to 30 mg every 6 hourly. Monitor blood pressures. Status: Acute (3) HTN (hypertension): BP elevated but better today. Likely component central as well Meds as above. Goal less than 140/90 mmhg. Uptitrate meds accordingly. Status: Acute (4) Hyponatremia: Resolved. He received a dose of Lasix late last night. Lasix 20 mg IV given April 08. Possibility of acute diastolic HF. Family and patient did not really want any extensive work-up, so an echocardiogram will not be ordered. Starting oral Lasix today. TSH and cortisol level checked and normal. Status: Acute (5) Parkinson's disease: Continue his home medications Status: Acute (6) Lewy body dementia: Status: Acute Additional A&P Information Given lab holiday today. Questionable history of seizures: Continue to monitor, fall precautions. Hypokalemia, supplemented. Magnesium level was normal. Allow natural . Confirmed with patient and family They really want quality of life measures, and would consider do not rehospitalize. They do want rehabilitation if possible. They do not want to stop his p.o. intake, realizing aspiration pneumonitis will recur. Lovenox for DVT prophylaxis No labs in AM. Attestations Medical Necessity Statement*: Patient requires further hospitalization for management of aspiration pneumonia with IV antibiotics, atrial tachycardia while safe discharge planning is sought. Time Spent in Patient Care: Greater than 35 minutes (>than 50% of time spent in counselling and/or direct pt care on unit). Coding Level of Care Code Acute Operating Room Tech for [facility] Diagnoses Aspiration pneumonia J69.0 Atrial tachycardia I47.1 HTN (hypertension) I10 Hyponatremia E87.1 Parkinson's disease G20 Lewy body dementia G31.83; F02.80
--- NOTE | 2021-04-12 11:56 | PC.NURSE ---
PEG RESIDUAL LESS THAN 5ML OF JEVITY RESIDUAL NOTED - CONTINUES TO MARY FEED WELL
--- NOTE | 2021-04-12 12:23 | PC.SOCIAL ---
IMM UPDATE Gave patient's family member IMM update at bedside. Provided him with copy of pg 2. Verbalized understanding. 04/12/21 @ 1129. Initialed, dated, timed and placed in chart.
--- NOTE | 2021-04-12 14:16 | PC.NUTR ---
Nutrition follow up: Per chart review, pt has consumed no meals since supper 04/09/21. However, upon discussion with family member Mayank, pt is eating at meals. Amount unclear. Reports choking incident at lunch today and that he stopped pt from finishing meal. Recommend to encourage po intakes of meals/supplements at proper consistency/texture, assistance as needed, and continue to monitor for aspiration risk. See full RD assessment for further details.
--- NOTE | 2021-04-12 17:39 | PC.NURSE ---
END OF SHIFT SUMMARY PT HAS SPENT SIGNIFICANT TIME IN THE CHAIR WELL UP IN ROOM - MANUAL BP HAS BEEN TAKEN TODAY - PT HAS NO COMPLAINTS OF PAIN OR NEEDS THROUGHOUT SHIFT - CURRENTLY STATES HE DOES NOT WANT ANYMORE LAXATIVE - CURRENTLY IN BED - BED CHECK SET
[2021-04-12] MEDS: enoxaparin 40 mg/0.4 mL Syringe SUBCUT (17:51)
[2021-04-13] VITALS (7 sets, daily range): BP systolic 145–158; BP diastolic 87–120; PULSE 77–132; RESP 17–20; TEMP 36.4; O2SAT 90–96
[2021-04-13] MEDS: ipratropium-albuterol 3 mL Neb INHALATION ×2 (03:14→09:04)
[2021-04-13] MEDS: piperacillin-tazobactam 3.375 GM in sodium chloride 0.9% (plus) 50 ML IV (04:48)
[2021-04-13] MEDS: carbidopa-levodopa 25-100mg Tablet 2 EACH PO ×2 (05:03→08:45)
[2021-04-13 06:14] LABS: Basophils # 0.1 10^3/uL (0.0-0.1); Basophils % 0.7 %; Eosinophils # 0.1 10^3/uL (0.0-0.8); Eosinophils % 0.8 %; Hematocrit 42.9 % (42.0-52.0); Hemoglobin 13.8 g/dL (11.7-16.6); Lymphocytes # 1.3 10^3/uL (0.8-4.8); Mean Corpuscular HGB Conc 32.2 g/dL (30.0-36.0); Mean Corpuscular Hemoglobin 31.3 pg (28.0-34.0); Mean Corpuscular Volume 97.3 fL (80-94); Mean Platelet Volume 9.6 fL (7.4-10.4); Monocytes # 0.9 10^3/uL (0.2-0.9); Monocytes % 7.9 %; Neutrophils # 9.22 10^3/uL (1.8-7.7); Neutrophils % 79.2 %; Nucleated Red Blood Cells % 0 %; Platelet Count 241 10^3/cmm (130-400); Red Blood Count 4.41 10^6/uL (4.1-5.3); Red Cell Distribution Width 14.1 % (12.1-15.1); White Blood Count 11.6 10^3/uL (4.0-10.0)
[2021-04-13 06:43] LABS: Alanine Aminotransferase < 5 U/L (0-41); Albumin Level 3.8 g/dL (3.5-5.2); Alkaline Phosphatase 79 IU/L (40-130); Anion Gap 11.2 (5-19); Aspartate Amino Transferase 27 U/L (0-40); Blood Urea Nitrogen 18 mg/dL (8-23); Calcium 8.5 mg/dL (8.5-10.5); Carbon Dioxide 32 mmol/L (22-29); Chloride 99 mmol/L (98-107); Globulin 2.3 g/dL (1.3-4.6); Glucose 106 mg/dL (65-115); Osmolality Calculated 290 mOsm/kg (285-295); Potassium 3.2 mmol/L (3.5-5.1); Sodium 139 mmol/L (136-145); Total Bilirubin 0.7 mg/dL (0.15-1.2); Total Protein 6.1 g/dL (6.6-8.7)
[2021-04-13] MEDS: pantoprazole DR 40 mg Tablet PO (08:44)
[2021-04-13] MEDS: metoprolol tartrate 50 mg Tablet PO (08:44)
[2021-04-13] MEDS: FUROsemide 20 mg Tablet PO (08:44)
[2021-04-13] MEDS: dilTIAZem 30 mg Tablet PO ×2 (08:45→12:55)
[2021-04-13] MEDS: budesonide 0.5 mg/2 mL Neb INHALATION (09:04)
[2021-04-13 10:11] LABS: SARS Covid-2 Antigen Negative (Negative)
--- NOTE | 2021-04-13 11:10 | PM.DCS ---
Discharge Providers Date of Admission: 04/07/21 08:51 Date of Discharge: April 13, 2021 Attending Provider at Admission: Sunil Johnson MD Attending Provider at Discharge: Ozzie Melendez MD Primary Care Provider: Alexander Hayes MD Diagnoses at Discharge Discharge Diagnosis (1) Aspiration pneumonia: Status: Acute (2) Atrial tachycardia: Status: Acute (3) HTN (hypertension): Status: Acute (4) Hyponatremia: Status: Acute (5) Parkinson's disease: Status: Acute (6) Lewy body dementia: Status: Acute Reason for Visit Reason for Visit: Low 02, SOB, Nausea Hospital Course Hospital Course Prashant Durham is a 75 year old male who has been coughing and short of breath for 4 to 5 days. He was in the emergency department on April 05 and was going to be admitted at that time but as there were no beds in the foreseeable future family ended up taking him home. He returns with no improvement today. He has had no fever at home. He coughs frequently with trying to eat any kind of food or drink. He is short of breath with any kind of exertion. He has past history of aspiration. He does not want a PEG tube. He does want treatment for pneumonia if needed. A family member is with him during my interview who is his advocate. He also reports that his daily care secondary to Parkinson's, debilitation, frequent aspiration, and weakness are becoming more more difficult and that he needs to likely transition to a nursing facility. Caregiver also reports he has shaking episodes at times and believes he may have a seizure disorder. Patient admitted to the hospital for management of recurrent aspiration pneumonia. He was started on broad-spectrum antibiotics. Swallow evaluation was done and his diet was advanced accordingly. Because of recurrent episodes of aspiration pneumonia and recurrent choking episodes diet further nutrition plan to discuss with family regarding PEG tube placement. Family declined PEG tube placement after confirming with the patient as per his advanced directives. Patient was also found to have hyponatremia on admission most likely secondary to hypervolemia for which he was started on oral Lasix for diastolic heart failure. Echocardiogram was not done given patient's advanced directive of no aggressive treatment. Given severe physical deconditioning SNF was arranged for the patient. He is been discharged hemodynamically stable condition with advice to take dysphagia ground 2 level diet, on Augmentin and Levaquin for next 5 days with supplemental oxygen. Patient's advanced directive states he is alone natural and do not hospitalize. Physical Exam Narrative: EXAM NARRATIVE: General exam demonstrates a conversant male Neck is supple no lymphadenopathy or thyromegaly Cardiovascular tachycardic, no murmur Lungs coarse breath sounds at the bases. No wheezing heard today. Abdomen is soft with positive bowel sounds Extremities no cyanosis clubbing or edema, cap refill brisk Discharge Data Data Completed and Pending: Completed Studies During Hospitalization Category Date Time Status XR chest 1V piedad ble [id number] Urgent Exams 04/06/21 14:12 Completed XR shoulder LT mi n 2V* [id number] Stat Exams 04/09/21 21:12 Completed Labs from last 24 hours 04/13/21 04/13/21 04/13/21 08:55 05:44 05:44 WBC 11.6 H RBC 4.41 Hgb 13.8 Hct 42.9 MCV 97.3 H MCH 31.3 MCHC 32.2 RDW 14.1 Plt Count 241 MPV 9.6 Neut % (Auto) 79.2 Lymph % (Auto) 11.0 Gray % (Auto) 7.9 Eos % (Auto) 0.8 Baso % (Auto) 0.7 Neut # (Auto) 9.22 H Lymph # (Auto) 1.3 Gray # (Auto) 0.9 Eos # (Auto) 0.1 Baso # (Auto) 0.1 Nucleated RBC % (a uto) 0 Nucleated RBCs # 0.0 Sodium 139 Potassium 3.2 L Chloride 99 Carbon Dioxide 32 H Anion Gap 11.2 BUN 18 Creatinine 0.8 GFR Calculation Not Reportable Glucose 106 Calculated Osmolal ity 290 Calcium 8.5 Total Bilirubin 0.7 AST 27 ALT < 5 Alkaline Phosphata se 79 Total Protein 6.1 L Albumin 3.8 Globulin 2.3 SARS-CoV-2 Ag (Rap id) Negative Addt'l Data from Hospital Stay: Laboratory Results WBC 11.6 10^3/uL (4.0 -10.0) H 04/13/21 05:44 RBC 4.41 10^6/uL (4.1 -5.3) 04/13/21 05:44 Hgb 13.8 g/dL (11.7-1 6.6) 04/13/21 05:44 Hct 42.9 % (42.0-52.0 ) 04/13/21 05:44 MCV 97.3 fL (80-94) H 04/13/21 05:44 MCH 31.3 pg (28.0-34. 0) 04/13/21 05:44 MCHC 32.2 g/dL (30.0-3 6.0) 04/13/21 05:44 RDW 14.1 % (12.1-15.1 ) 04/13/21 05:44 Plt Count 241 10^3/cmm (130 -400) 04/13/21 05:44 MPV 9.6 fL (7.4-10.4) 04/13/21 05:44 Neut % (Auto) 79.2 % 04/13/21 05:44 Lymph % (Auto) 11.0 % 04/13/21 05:44 Gray % (Auto) 7.9 % 04/13/21 05:44 Eos % (Auto) 0.8 % 04/13/21 05:44 Baso % (Auto) 0.7 % 04/13/21 05:44 Neut # (Auto) 9.22 10^3/uL (1.8 -7.7) H 04/13/21 05:44 Lymph # (Auto) 1.3 10^3/uL (0.8- 4.8) 04/13/21 05:44 Gray # (Auto) 0.9 10^3/uL (0.2- 0.9) 04/13/21 05:44 Eos # (Auto) 0.1 10^3/uL (0.0- 0.8) 04/13/21 05:44 Baso # (Auto) 0.1 10^3/uL (0.0- 0.1) 04/13/21 05:44 Nucleated RBC % (a uto) 0 % 04/13/21 05:44 Nucleated RBCs # 0.0 /100WBC 04/13/21 05:44 Sodium 139 mmol/L (136-1 45) 04/13/21 05:44 Potassium 3.2 mmol/L (3.5-5 .1) L 04/13/21 05:44 Chloride 99 mmol/L (98-107 ) 04/13/21 05:44 Carbon Dioxide 32 mmol/L (22-29) H 04/13/21 05:44 Anion Gap 11.2 (5-19) 04/13/21 05:44 BUN 18 mg/dL (8-23) 04/13/21 05:44 Creatinine 0.8 mg/dL (0.7-1. 2) 04/13/21 05:44 GFR Calculation Not Reportable 04/13/21 05:44 Glucose 106 mg/dL (65-115 ) 04/13/21 05:44 Calculated Osmolal ity 290 mOsm/kg (285- 295) 04/13/21 05:44 Lactic Acid 1.0 mmol/L (0.5-2 .2) 04/06/21 16:09 Calcium 8.5 mg/dL (8.5-10 .5) 04/13/21 05:44 Magnesium 2.1 mg/dL (1.7-2. 3) 04/08/21 04:58 Total Bilirubin 0.7 mg/dL (0.15-1 .2) 04/13/21 05:44 AST 27 U/L (0-40) 04/13/21 05:44 ALT < 5 U/L (0-41) 04/13/21 05:44 Alkaline Phosphata se 79 IU/L (40-130) 04/13/21 05:44 Total Protein 6.1 g/dL (6.6-8.7 ) L 04/13/21 05:44 Albumin 3.8 g/dL (3.5-5.2 ) 04/13/21 05:44 Globulin 2.3 g/dL (1.3-4.6 ) 04/13/21 05:44 TSH 2.80 uIU/mL (0.27 -4.20) 04/07/21 15:29 Random Cortisol 30.82 ug/dL (2.47 -19.5) H 04/07/21 15:29 Urine Color Yellow (Yellow) 04/06/21 15:15 Urine Appearance Clear (CLEAR) 04/06/21 15:15 Urine pH 6.5 (5-7) 04/06/21 15:15 Ur Specific Gravit y 1.015 (1.005-1.0 30) 04/06/21 15:15 Urine Protein Neg (Negative) 04/06/21 15:15 Urine Glucose (UA) Norm (Normal) 04/06/21 15:15 Urine Ketones 1+ (Negative) H 04/06/21 15:15 Urine Blood Neg (Negative) 04/06/21 15:15 Urine Nitrate Negative (Negati ve) 04/06/21 15:15 Urine Bilirubin Neg (Negative) 04/06/21 15:15 Urine Urobilinogen Neg mg/dL (Negati ve) 04/06/21 15:15 Ur Leukocyte Dina ase Negative (Negati ve) 04/06/21 15:15 SARS-CoV-2 Ag (Rap id) Negative (Negati ve) 04/13/21 08:55 Impressions Chest X-Ray 04/06/21 14:12 IMPRESSION: 1. Low right lower lobe pneumonia 2. Bilateral lower lobe pleural effusion Shoulder X-Ray 04/09/21 21:12 IMPRESSION: 1. No visible acute osseous abnormality. 2. High-riding left shoulder. 3. Incidental note of a moderate volume left pleural effusion with consolidated alveolar airspace disease left lung base. Microbiology 04/06/21 16:09 Blood Blood Culture - Final NO GROWTH AFTER 5 DAYS 04/06/21 15:42 Blood Blood Culture - Final NO GROWTH AFTER 5 DAYS 04/10/21 12:05 Nose MRSA Culture - Final Vitals: Last Vital Signs Temp 97.5 F L 04/13/21 08:00 Pulse 128 H 04/13/21 09:14 Resp 20 H 04/13/21 09:05 BP 158/120 04/13/21 08:00 Pulse Ox 96 04/13/21 09:05 Discharge Plan Discharge Patient Disposition: Xfer SNF Condition: Stable Prescriptions: New pantoprazole 40 mg Tablet,Delayed Release (Dr/Ec) 40 mg PO BID 30 Days Qty: 60 RF: 0 metoprolol tartrate 50 mg Tablet 50 mg PO BID@0900,2100 30 Days Qty: 60 RF: 0 furosemide 20 mg Tablet 20 mg PO DAILY@0800 30 Days Qty: 30 RF: 0 diltiazem HCl 30 mg Tablet 30 mg PO QID 30 Days Qty: 120 RF: 0 Augmentin 500-125 mg tablet 1 tab PO BID 5 Days Qty: 10 RF: 0 levofloxacin 500 mg tablet 500 mg PO Q24H 5 Days Qty: 5 RF: 0 Continued thiamine HCl (vitamin B1) [Vitamin B-1] 250 mg Tablet 250 mg PO BEDTIME RF: 0 carbidopa-levodopa 25-100 mg tablet 2 tab PO .FIVE TIMES A DAY RF: 0 hawthorn 500 mg Capsule 500 mg PO BEDTIME RF: 0 taurine 1,000 mg Capsule 1,000 mg PO DAILY PRN (Reason: UNKNOWN) RF: 0 polyethylene glycol 3350 [Miralax] 17 gram Powder In Packet 17 g PO EVERY OTHER DAY RF: 0 mirtazapine 15 mg tablet,disintegrating 15 mg PO BEDTIME RF: 0 meloxicam 7.5 mg tablet 7.5 mg PO DAILY PRN (Reason: JOINT PAIN) RF: 0 turmeric 400 mg Capsule 800 mg PO BEDTIME RF: 0 Discontinued felodipine 5 mg tablet extended release 24 hr 5 mg PO BID RF: 0 clindamycin HCl 300 mg capsule 300 mg PO Q8H 10 Days Qty: 30 RF: 0 Discharge Orders: Discharge Order (Routine); Ordered 04/13/21 Ordered By: Ozzie Melendez Referrals: Alexander Hayes MD [Primary Care Provider] - 7-10 days Discharge Diet: As Directed Discharge Activity: Resume usual activity Patient Instructions: Opioid Safety Activity Restrictions/Additional Instructions: Please continue diet as directed. Patient should be taking dysphagia level 2 ground diet. Please continue taking Augmentin and Levaquin for next 5 days. As per patient's advanced directive he is do not hospitalize Discharge Attestations Time Spent in Discharge Care*: greater than 30 min Specific Discharge Activities: educating patient, educating and/or supporting family/caregiver, discussing with home improvement advisor/social workers/dc planners, documenting/other paperwork and evaluating patient/reviewing data Status at Discharge: Cognitive status at discharge: mildly impaired cognition, Behavioral status at discharge: cooperative, Functional status at discharge: uses cane/walker Overall status at discharge: patient is back to baseline Quality Metrics Clinical Quality Measures During this hospital stay, did patient experience: None Coding Level of Care Code Acute Chg FW DC note Diagnoses Aspiration pneumonia J69.0 Atrial tachycardia I47.1 HTN (hypertension) I10 Hyponatremia E87.1 Parkinson's disease G20 Lewy body dementia G31.83; F02.80
== END 2021-04-13 13:20 | disposition skilled nursing facility (03) | DRG 177 ==
LOC: ER 04-07 08:53 → MEDSURG 04-07 11:33
PROVIDERS: Emergency Medicine; Physician Assistant; Admitting Provider Internal Medicine; Emergency Provider Family Medicine; PCP Family Medicine; Visit Provider Student in an Organized Health Care Education/Training Program
DX: J69.0 Pneumonitis due to inhalation of food and vomit (principal); I50.31 Acute diastolic (congestive) heart failure; E87.1 Hypo-osmolality and hyponatremia; I47.1 Supraventricular tachycardia; F02.80 Dementia in other diseases classified elsewhere, unspecified severity, without behavioral disturbance, psychotic disturbance, mood disturbance, and anxiety; G31.83 Neurocognitive disorder with Lewy bodies; Z66 Do not resuscitate; M25.512 Pain in left shoulder; I11.0 Hypertensive heart disease with heart failure
CPT/HCPCS: 36415; 71045; 73030; 80048; 80053; 81003; 82533; 83605; 83735; 84443; 85025; 87040; 87426; 87641; 92526; 92610; 93005; 94640; 96365; 96366; 96367; 96372; 96375; 99291; J0295; J1650; J1940; J2543; J7030; J7626